=== PATIENT | female | born 1940 | race Caucasian/White ===

== ENCOUNTER 2018-12-29 08:29 | Emergency (ER) | payer MEDICARE, BC ==
[~2018-12-29] VITALS: Ht 167.6 cm; Wt 52.8 kg
[2018-12-29 09:03] VITALS: BP 131/68
--- NOTE | 2018-12-29 09:06 | NUR ---
pt straight cath, 980ml clear urine out.
[2018-12-29 09:33] LABS: CLARITY,URINE CLEAR (Clear); COLOR,URINE YELLOW (Yellow); GLUCOSE, URINE NEGATIVE (Neg); KETONES,URINE NEGATIVE (Neg); LEUKOCYTE ESTERASE ,URINE MODERATE (Neg); NITRITES, URINE NEGATIVE (Neg); OCCULT BLOOD,URINE NEGATIVE (Neg); PROTEIN,URINE NEGATIVE (Neg); UROBILINOGEN,URINE 0.2 E.U/dL (0.2-1.0)
[2018-12-29 09:33] LABS: ALANINE AMINOTRANSFERASE 18 U/L (12-78); ALBUMIN 3.7 G/DL (3.4-5.0); ALBUMIN/GLOBULIN RATIO 1.2 (1.1-1.5); ALKALINE PHOSPHATASE 116 IU/L (46-116); ANION GAP 4 (8-16); ASPARTATE AMINO TRANSFERASE 14 U/L (10-37); BILIRUBIN,TOTAL 0.2 MG/DL (0.1-1.0); BLOOD UREA NITROGEN 14 MG/DL (7-18); BUN/CREATININE RATIO 17.1 (6.6-38.0); CALCIUM 8.9 MG/DL (8.5-10.1); CHLORIDE 101 MMOL/L (99-107); CREATININE 0.82 MG/DL (0.40-0.90); GLUCOSE 102 MG/DL (70-104); SODIUM 133 MMOL/L (135-145); TOTAL PROTEIN 6.9 G/DL (6.4-8.2); eGFR 67 ML/MIN
[2018-12-29 09:34] LABS: UA COLLECTION TYPE STRAIGHT CATH
[2018-12-29 09:35] LABS: BASOPHILS # (AUTO) 0.1 X10'3 (0-0.2); BASOPHILS % (AUTO) 1.2 % (0-1); EOSINOPHILS # (AUTO) 0.6 X10'3 (0-0.9); EOSINOPHILS % (AUTO) 6.6 % (0-6); HEMATOCRIT 38.3 % (35.0-45.0); LYMPHOCYTES # (AUTO) 1.3 X10'3 (1.1-4.8); LYMPHOCYTES % (AUTO) 14.3 % (21-51); MEAN CORPUSCULAR VOLUME 96.9 FL (78-98); MEAN PLATELET VOLUME 7.3 FL (7.4-10.4); MONOCYTES # (AUTO) 0.7 X10'3 (0-0.9); MONOCYTES % (AUTO) 8.1 % (2-12); NEUTROPHILS # (AUTO) 6.3 X10'3 (1.8-7.7); NEUTROPHILS % (AUTO) 69.8 % (42-75); PLATELET COUNT 471 X10'3 (140-440); RED BLOOD COUNT 3.96 X10'6 (4.20-5.60); RED CELL DISTRIBUTION WIDTH 13.8 % (11.5-14.5)
[2018-12-29 09:50] LABS: SQUAMOUS EPITHELIAL CELL,UR FEW /LPF (FEW)
[2018-12-29 09:52] LABS: WBC,URINE 20-30 /HPF (0-4)
[2018-12-29 09:53] LABS: BACTERIA,URINE FEW /HPF (Neg); RBC,URINE 0-2 /HPF (0-2)
[2018-12-29] MEDS ORDERED: [UNRECOGNIZED DRUG - CODE] (10:04)
[2018-12-29] MEDS ORDERED: PHEN-824 PO (10:04)
== END 2018-12-29 10:28 | disposition home or self-care (01) ==
LOC: ER 08:29
DX: R33.9 Retention of urine, unspecified (principal); N39.0 Urinary tract infection, site not specified; I10 Essential (primary) hypertension; J44.9 Chronic obstructive pulmonary disease, unspecified; K21.9 Gastro-esophageal reflux disease without esophagitis; Z87.11 Personal history of peptic ulcer disease; Z87.442 Personal history of urinary calculi; Z90.710 Acquired absence of both cervix and uterus; Z88.1 Allergy status to other antibiotic agents; Z88.0 Allergy status to penicillin; Z91.012 Allergy to eggs; Z88.2 Allergy status to sulfonamides; Z79.899 Other long term (current) drug therapy
CPT/HCPCS: 36415; 51701; 80053; 81001; 85025; 99284; P9612

== ENCOUNTER 2019-03-05 08:07 | Emergency (ER) | payer MEDICARE, BC ==
[~2019-03-05] VITALS: Ht 162.6 cm; Wt 50.9 kg
[~2019-03-05 08:07] MED LIST: PHEN-824 PO; [UNRECOGNIZED DRUG - CODE]
[2019-03-05 08:16] VITALS: BP 149/61
[2019-03-05 11:23] LABS: CLARITY,URINE CLEAR (Clear); COLOR,URINE YELLOW (Yellow); GLUCOSE, URINE NEGATIVE (Neg); KETONES,URINE NEGATIVE (Neg); LEUKOCYTE ESTERASE ,URINE NEGATIVE (Neg); NITRITES, URINE NEGATIVE (Neg); OCCULT BLOOD,URINE NEGATIVE (Neg); PROTEIN,URINE NEGATIVE (Neg); UROBILINOGEN,URINE 0.2 E.U/dL (0.2-1.0)
[2019-03-05 11:24] LABS: ALANINE AMINOTRANSFERASE 22 U/L (12-78); ALBUMIN 3.9 G/DL (3.4-5.0); ALBUMIN/GLOBULIN RATIO 1.1 (1.1-1.5); ALKALINE PHOSPHATASE 119 IU/L (46-116); ANION GAP 8 (8-16); ASPARTATE AMINO TRANSFERASE 13 U/L (10-37); BILIRUBIN,TOTAL 0.3 MG/DL (0.1-1.0); BLOOD UREA NITROGEN 12 MG/DL (7-18); BUN/CREATININE RATIO 21.1 (6.6-38.0); CALCIUM 8.9 MG/DL (8.5-10.1); CHLORIDE 98 MMOL/L (99-107); CREATININE 0.57 MG/DL (0.40-0.90); GLUCOSE 105 MG/DL (70-104); POTASSIUM 3.7 MMOL/L (3.5-5.1); SODIUM 134 MMOL/L (135-145); TOTAL CARBON DIOXIDE 27.6 MMOL/L (24-32); TOTAL PROTEIN 7.3 G/DL (6.4-8.2); eGFR > 90 ML/MIN
[2019-03-05 12:14] LABS: UA COLLECTION TYPE FOLEY CATH
[2019-03-05 12:23] LABS: BASOPHILS # (AUTO) 0.1 X10'3 (0-0.2); BASOPHILS % (AUTO) 0.9 % (0-1); EOSINOPHILS # (AUTO) 0.4 X10'3 (0-0.9); EOSINOPHILS % (AUTO) 2.9 % (0-6); HEMATOCRIT 42.2 % (35.0-45.0); LYMPHOCYTES % (AUTO) 7.3 % (21-51); MEAN CORPUSCULAR HGB CONC 33.3 g/dL (33.0-36.5); MEAN CORPUSCULAR VOLUME 96.1 FL (78-98); MEAN PLATELET VOLUME 7.5 FL (7.4-10.4); MONOCYTES % (AUTO) 7.8 % (2-12); NEUTROPHILS # (AUTO) 10.6 X10'3 (1.8-7.7); NEUTROPHILS % (AUTO) 81.1 % (42-75); PLATELET COUNT 427 X10'3 (140-440); RED BLOOD COUNT 4.38 X10'6 (4.20-5.60); RED CELL DISTRIBUTION WIDTH 14.1 % (11.5-14.5); WHITE BLOOD COUNT 13.1 X10'3 (4.5-11.0)
== END 2019-03-05 11:56 | disposition home or self-care (01) ==
LOC: ER 08:08
DX: R33.9 Retention of urine, unspecified (principal); I10 Essential (primary) hypertension; J44.9 Chronic obstructive pulmonary disease, unspecified; K21.9 Gastro-esophageal reflux disease without esophagitis; Z87.442 Personal history of urinary calculi; Z90.710 Acquired absence of both cervix and uterus; Z88.6 Allergy status to analgesic agent; Z88.0 Allergy status to penicillin; Z88.2 Allergy status to sulfonamides; Z88.1 Allergy status to other antibiotic agents; Z91.013 Allergy to seafood
CPT/HCPCS: 36415; 51702; 80053; 81003; 85025; 99284

== ENCOUNTER 2019-03-07 17:41 | Emergency (ER) | payer MEDICARE, BC ==
[~2019-03-07] VITALS: Ht 162.6 cm; Wt 51.0 kg
[2019-03-07 17:43] VITALS: BP 161/55
[2019-03-07 18:55] LABS: CLARITY,URINE CLEAR (Clear); COLOR,URINE YELLOW (Yellow); GLUCOSE, URINE NEGATIVE (Neg); KETONES,URINE NEGATIVE (Neg); LEUKOCYTE ESTERASE ,URINE NEGATIVE (Neg); NITRITES, URINE NEGATIVE (Neg); OCCULT BLOOD,URINE NEGATIVE (Neg); PROTEIN,URINE TRACE mg/dl (Neg); UROBILINOGEN,URINE 0.2 E.U/dL (0.2-1.0)
[2019-03-07 19:02] LABS: UA COLLECTION TYPE FOLEY CATH
[2019-03-07 19:04] LABS: BACTERIA,URINE 1+ /HPF (Neg); MUCUS STRANDS NONE SEEN /LPF (Neg); SQUAMOUS EPITHELIAL CELL,UR MANY /LPF (FEW)
[2019-03-07] MEDS ORDERED: CEPH-572 PO (19:23)
== END 2019-03-07 19:32 | disposition home or self-care (01) ==
LOC: ER 17:42
DX: T83.098A Other mechanical complication of other urinary catheter, initial encounter (principal); T83.511A Infection and inflammatory reaction due to indwelling urethral catheter, initial encounter; I10 Essential (primary) hypertension; J44.9 Chronic obstructive pulmonary disease, unspecified; K21.9 Gastro-esophageal reflux disease without esophagitis; Z90.710 Acquired absence of both cervix and uterus; Z87.442 Personal history of urinary calculi; Z98.890 Other specified postprocedural states; Z88.0 Allergy status to penicillin; Z91.013 Allergy to seafood; Z88.2 Allergy status to sulfonamides; Z79.2 Long term (current) use of antibiotics; Z79.899 Other long term (current) drug therapy
CPT/HCPCS: 51702; 81001; 99284

== ENCOUNTER 2019-03-12 20:46 | Inpatient (IN) | payer MEDICARE, BC ==
[~2019-03-12] VITALS: Ht 162.6 cm; Wt 110.0 kg
[~2019-03-12 20:46] MED LIST changes: +CEPH-572 PO
[2019-03-12] MEDS ORDERED: LIDOcaine 1% 30ml preserv. free vial IJ ONE (21:05)
--- NOTE | 2019-03-12 21:48 | NUR ---
DR VELEZ AT BEDSIDE ,HELP THE PT TO REMOVE PANTS.CELESTINO GARCIA AT BEDSIDE WITH DR VELEZ.
[2019-03-12 21:52] LABS: BASOPHILS # (AUTO) 0.1 X10'3 (0-0.2); BASOPHILS % (AUTO) 0.9 % (0-1); EOSINOPHILS # (AUTO) 0.4 X10'3 (0-0.9); EOSINOPHILS % (AUTO) 3.4 % (0-6); HEMATOCRIT 30.9 % (35.0-45.0); HEMOGLOBIN 10.6 g/dl (12.0-16.0); LYMPHOCYTES # (AUTO) 2.1 X10'3 (1.1-4.8); LYMPHOCYTES % (AUTO) 16.7 % (21-51); MEAN CORPUSCULAR HEMOGLOBIN 32.9 PG (27.0-31.0); MEAN CORPUSCULAR HGB CONC 34.2 g/dL (33.0-36.5); MEAN CORPUSCULAR VOLUME 96.2 FL (78-98); MEAN PLATELET VOLUME 6.9 FL (7.4-10.4); MONOCYTES # (AUTO) 1.1 X10'3 (0-0.9); MONOCYTES % (AUTO) 8.9 % (2-12); NEUTROPHILS # (AUTO) 8.8 X10'3 (1.8-7.7); NEUTROPHILS % (AUTO) 70.1 % (42-75); PLATELET COUNT 482 X10'3 (140-440); RED BLOOD COUNT 3.21 X10'6 (4.20-5.60); RED CELL DISTRIBUTION WIDTH 13.9 % (11.5-14.5); WHITE BLOOD COUNT 12.5 X10'3 (4.5-11.0)
[2019-03-12 22:03] LABS: ALANINE AMINOTRANSFERASE 24 U/L (12-78); ALBUMIN 3.1 G/DL (3.4-5.0); ALBUMIN/GLOBULIN RATIO 1.2 (1.1-1.5); ALKALINE PHOSPHATASE 86 IU/L (46-116); ANION GAP 5 (8-16); ASPARTATE AMINO TRANSFERASE 11 U/L (10-37); BILIRUBIN,TOTAL 0.3 MG/DL (0.1-1.0); BLOOD UREA NITROGEN 23 MG/DL (7-18); BUN/CREATININE RATIO 32.9 (6.6-38.0); CALCIUM 8.1 MG/DL (8.5-10.1); CHLORIDE 106 MMOL/L (99-107); GLUCOSE 104 MG/DL (70-104); POTASSIUM 4.2 MMOL/L (3.5-5.1); SODIUM 140 MMOL/L (135-145); TOTAL CARBON DIOXIDE 28.7 MMOL/L (24-32); TOTAL PROTEIN 5.7 G/DL (6.4-8.2); eGFR 81 ML/MIN
[2019-03-12 22:09] LABS: PARTIAL THROMBOPLASTIN TIME 21 SECONDS (22-32)
--- NOTE | 2019-03-12 22:50 | NUR ---
pt to ct scan via hugo with adjunct professor of voice
[2019-03-12 22:56] LABS: UA COLLECTION TYPE OTHER
[2019-03-12 22:57] LABS: CLARITY,URINE CLEAR (Clear); COLOR,URINE YELLOW (Yellow); GLUCOSE, URINE NEGATIVE (Neg); KETONES,URINE NEGATIVE (Neg); LEUKOCYTE ESTERASE ,URINE NEGATIVE (Neg); NITRITES, URINE NEGATIVE (Neg); OCCULT BLOOD,URINE TRACE-INTACT (Neg); PROTEIN,URINE 30 mg/dl (Neg); UROBILINOGEN,URINE 0.2 E.U/dL (0.2-1.0)
[2019-03-12 23:06] LABS: BACTERIA,URINE NONE SEEN /HPF (Neg); MUCUS STRANDS NONE SEEN /LPF (Neg); RBC,URINE 0-2 /HPF (0-2); SQUAMOUS EPITHELIAL CELL,UR FEW /LPF (FEW); WBC,URINE NONE SEEN /HPF (0-4)
[2019-03-13] MEDS ORDERED: morphine 4 MG/ML inj SYRINge IV ONE (01:30)
[2019-03-13] MEDS ORDERED: ondansetron/PF 4mg/2ml inj IV ONE (01:30)
[2019-03-13] MEDS ORDERED: PHEN100C12 PO (03:03)
[2019-03-13] MEDS ORDERED: PHEN-403 PO (03:03)
[2019-03-13] MEDS ORDERED: PRAM0.253 PO (03:08)
[2019-03-13] MEDS ORDERED: DILT180C90 PO (03:08)
[2019-03-13] MEDS ORDERED: PHEN-887 PO (03:08)
[2019-03-13] MEDS ORDERED: ASPI-1265 PO (03:26)
[2019-03-13] MEDS ORDERED: LOSA25TA96 PO (03:28)
[2019-03-13 03:34] LABS: PHENYTOIN (DILANTIN) 2.4 UG/ML (10.0-20.0)
[2019-03-13] MEDS ORDERED: magnesium hydroxide 30ml (MOM) UD suspension PO PRN (03:35)
[2019-03-13] MEDS ORDERED: HYDROcodone/acetaminophen 5mg/325mg tablet PO PRN (03:35)
[2019-03-13] MEDS ORDERED: morphine 2 MG/ML inj. syringe IV PRN (03:35)
[2019-03-13] MEDS ORDERED: mag hydrox/Alum hydrox/simeth 30ml oral suspension PO PRN (03:35)
[2019-03-13] MEDS ORDERED: acetaminophen 325mg tablet PO PRN (03:35)
--- NOTE | 2019-03-13 04:10 | NUR ---
Received report from CONNECTION WORKER. Patient currently in the hallway and in process of being transferred from the [facility] to our bed.
[2019-03-13 04:21] VITALS: BP 128/60
[2019-03-13] MEDS: morphine 2 MG/ML inj. syringe IV PRN ×3 (04:31→13:40)
--- NOTE | 2019-03-13 06:15 | NUR ---
Patient in room ORTHO 4023. I have received report from JACQUELINE CAMPBELL and had the opportunity to ask questions and assume patient care.
[2019-03-13] MEDS: HYDROcodone/acetaminophen 10/325mg tab PO PRN ×3 (06:52→20:47)
[2019-03-13 07:08] VITALS: BP 128/60
[2019-03-13] MEDS: phenazopyridine 100mg tablet PO SCH ×2 (08:48→15:43)
[2019-03-13] MEDS: phenytoin sod ER 100mg capsule PO SCH (08:48)
[2019-03-13] MEDS: aspirin 81mg tab.chew PO SCH (08:48)
[2019-03-13] MEDS: diltiazem CD 180mg cap (once-daily) PO SCH (08:48)
[2019-03-13] MEDS: losartan 25mg tablet PO SCH (08:48)
[2019-03-13] MEDS: ondansetron/PF 4mg/2ml inj IV PRN ×2 (09:57→15:43)
[2019-03-13 10:57] VITALS: BP 121/55
--- NOTE | 2019-03-13 11:52 | NUR ---
Pt seen by OLGA admit w/ hematoma s/p fall. Pt reports current GI discomfort; agrees to ensure pudding TIDWM and would like salt TIDWM on regular diet. Dietary notified. Addendum: 03/13/19 at [address] Amended: Links added.
[2019-03-13] MEDS: pantoprazole 40mg Tablet.DR PO SCH ×2 (13:30→15:49)
[2019-03-13 18:00] VITALS: BP 105/52
--- NOTE | 2019-03-13 18:19 | NUR ---
Problems reprioritized. Patient report given, questions answered & plan of care reviewed with JACQUELINE CAMPBELL.
[2019-03-13] MEDS: pramipexole 0.25mg tablet PO SCH (20:44)
[2019-03-13 22:00] VITALS: BP 111/53
[2019-03-14 06:00] VITALS: BP 105/44
--- NOTE | 2019-03-14 06:29 | NUR ---
Problems reprioritized. Patient report given, questions answered & plan of care reviewed with JACQUELINE Jaimes.
[2019-03-14 06:41] LABS: BASOPHILS # (AUTO) 0.1 X10'3 (0-0.2); BASOPHILS % (AUTO) 0.5 % (0-1); EOSINOPHILS # (AUTO) 0.4 X10'3 (0-0.9); HEMATOCRIT 22.4 % (35.0-45.0); HEMOGLOBIN 7.5 g/dl (12.0-16.0); LYMPHOCYTES # (AUTO) 0.9 X10'3 (1.1-4.8); LYMPHOCYTES % (AUTO) 7.4 % (21-51); MEAN CORPUSCULAR HEMOGLOBIN 32.7 PG (27.0-31.0); MEAN CORPUSCULAR HGB CONC 33.5 g/dL (33.0-36.5); MEAN CORPUSCULAR VOLUME 97.7 FL (78-98); MEAN PLATELET VOLUME 7.3 FL (7.4-10.4); MONOCYTES % (AUTO) 8.1 % (2-12); NEUTROPHILS # (AUTO) 9.7 X10'3 (1.8-7.7); PLATELET COUNT 370 X10'3 (140-440); RED CELL DISTRIBUTION WIDTH 13.7 % (11.5-14.5); WHITE BLOOD COUNT 11.9 X10'3 (4.5-11.0)
--- NOTE | 2019-03-14 06:55 | NUR ---
Patient in room ORTHO 4023. I have received report from Jocelyne Casey RN and had the opportunity to ask questions and assume patient care.
[2019-03-14 07:00] LABS: ALANINE AMINOTRANSFERASE 18 U/L (12-78); ALBUMIN 2.5 G/DL (3.4-5.0); ALKALINE PHOSPHATASE 77 IU/L (46-116); ANION GAP 4 (8-16); ASPARTATE AMINO TRANSFERASE 13 U/L (10-37); BILIRUBIN,TOTAL 0.2 MG/DL (0.1-1.0); BLOOD UREA NITROGEN 18 MG/DL (7-18); BUN/CREATININE RATIO 30.5 (6.6-38.0); CALCIUM 7.7 MG/DL (8.5-10.1); CHLORIDE 102 MMOL/L (99-107); CREATININE 0.59 MG/DL (0.40-0.90); GLUCOSE 138 MG/DL (70-104); POTASSIUM 4.8 MMOL/L (3.5-5.1); SODIUM 134 MMOL/L (135-145); TOTAL CARBON DIOXIDE 28.5 MMOL/L (24-32); TOTAL PROTEIN 4.9 G/DL (6.4-8.2); eGFR > 90 ML/MIN
[2019-03-14] MEDS: phenazopyridine 100mg tablet PO SCH ×4 (07:50→23:35)
[2019-03-14] MEDS: pantoprazole 40mg Tablet.DR PO SCH (07:50)
[2019-03-14] MEDS: phenytoin sod ER 100mg capsule PO SCH (07:51)
[2019-03-14] MEDS: diltiazem CD 180mg cap (once-daily) PO SCH (07:53)
[2019-03-14 07:54] VITALS: BP 98/47
[2019-03-14] MEDS: losartan 25mg tablet PO SCH (07:54)
[2019-03-14] MEDS: HYDROcodone/acetaminophen 10/325mg tab PO PRN ×2 (07:59→16:08)
[2019-03-14] MEDS: aspirin 81mg tab.chew PO SCH (08:00)
[2019-03-14 08:13] VITALS: BP 110/45
[2019-03-14] MEDS: ondansetron/PF 4mg/2ml inj IV PRN (08:42)
[2019-03-14 09:42] VITALS: BP 111/45
[2019-03-14] MEDS: sucralfate 1gm/10ml UD suspension PO SCH ×2 (16:08→20:10)
[2019-03-14 18:00] VITALS: BP 106/51
--- NOTE | 2019-03-14 18:11 | NUR ---
Problems reprioritized. Patient report given, questions answered & plan of care reviewed with Jocelyne Casey RN.
[2019-03-14] MEDS: pramipexole 0.25mg tablet PO SCH (20:07)
[2019-03-14 22:00] VITALS: BP 117/52
[2019-03-15] VITALS (8 sets, daily range): BP systolic 100–123; BP diastolic 42–60
[2019-03-15] MEDS: HYDROcodone/acetaminophen 10/325mg tab PO PRN ×2 (05:52→20:42)
[2019-03-15 05:58] LABS: BASOPHILS # (AUTO) 0.1 X10'3 (0-0.2); BASOPHILS % (AUTO) 0.5 % (0-1); EOSINOPHILS # (AUTO) 0.3 X10'3 (0-0.9); EOSINOPHILS % (AUTO) 3.3 % (0-6); HEMOGLOBIN 7.1 g/dl (12.0-16.0); LYMPHOCYTES % (AUTO) 9.8 % (21-51); MEAN CORPUSCULAR HEMOGLOBIN 33.2 PG (27.0-31.0); MEAN CORPUSCULAR HGB CONC 34.4 g/dL (33.0-36.5); MEAN CORPUSCULAR VOLUME 96.7 FL (78-98); MEAN PLATELET VOLUME 6.9 FL (7.4-10.4); MONOCYTES # (AUTO) 1.1 X10'3 (0-0.9); MONOCYTES % (AUTO) 10.6 % (2-12); NEUTROPHILS % (AUTO) 75.8 % (42-75); PLATELET COUNT 353 X10'3 (140-440); RED BLOOD COUNT 2.15 X10'6 (4.20-5.60); RED CELL DISTRIBUTION WIDTH 13.6 % (11.5-14.5); WHITE BLOOD COUNT 10.5 X10'3 (4.5-11.0)
[2019-03-15 06:07] LABS: HEMATOCRIT 20.8 % (35.0-45.0)
--- NOTE | 2019-03-15 06:37 | NUR ---
Problems reprioritized. Patient report given, questions answered & plan of care reviewed with JACQUELINE Dugan. Critical results given to Kailee - she will notify .
[2019-03-15 06:53] LABS: ALANINE AMINOTRANSFERASE 16 U/L (12-78); ALBUMIN 2.4 G/DL (3.4-5.0); ALBUMIN/GLOBULIN RATIO 0.9 (1.1-1.5); ALKALINE PHOSPHATASE 70 IU/L (46-116); ANION GAP 3 (8-16); ASPARTATE AMINO TRANSFERASE 16 U/L (10-37); BILIRUBIN,TOTAL 0.3 MG/DL (0.1-1.0); BLOOD UREA NITROGEN 13 MG/DL (7-18); BUN/CREATININE RATIO 22.4 (6.6-38.0); CALCIUM 7.7 MG/DL (8.5-10.1); CHLORIDE 101 MMOL/L (99-107); CREATININE 0.58 MG/DL (0.40-0.90); GLUCOSE 113 MG/DL (70-104); POTASSIUM 4.8 MMOL/L (3.5-5.1); SODIUM 133 MMOL/L (135-145); TOTAL PROTEIN 5.1 G/DL (6.4-8.2); eGFR > 90 ML/MIN
--- NOTE | 2019-03-15 07:06 | NUR ---
PAGER ID: [phone] MESSAGE: Kailee Mo[address] in [id number]- received critical h/h- .
[2019-03-15] MEDS: losartan 25mg tablet PO SCH (08:00)
[2019-03-15] MEDS: diltiazem CD 180mg cap (once-daily) PO SCH (09:52)
[2019-03-15] MEDS: pantoprazole 40mg Tablet.DR PO SCH (09:53)
[2019-03-15] MEDS: sucralfate 1gm/10ml UD suspension PO SCH ×4 (09:53→20:42)
[2019-03-15] MEDS: phenazopyridine 100mg tablet PO SCH ×2 (09:53→16:00)
[2019-03-15] MEDS: phenytoin sod ER 100mg capsule PO SCH (09:53)
[2019-03-15] MEDS: aspirin 81mg tab.chew PO SCH (12:06)
[2019-03-15] MEDS: pramipexole 0.25mg tablet PO SCH (20:41)
[2019-03-16] MEDS: HYDROcodone/acetaminophen 10/325mg tab PO PRN ×2 (05:39→13:02)
[2019-03-16 06:00] VITALS: BP 104/45
--- NOTE | 2019-03-16 06:24 | NUR ---
Problems reprioritized. Patient report given, questions answered & plan of care reviewed with JACQUELINE Dugan.
[2019-03-16 07:09] LABS: BASOPHILS # (AUTO) 0.1 X10'3 (0-0.2); BASOPHILS % (AUTO) 0.6 % (0-1); EOSINOPHILS # (AUTO) 0.5 X10'3 (0-0.9); EOSINOPHILS % (AUTO) 4.5 % (0-6); HEMATOCRIT 26.9 % (35.0-45.0); HEMOGLOBIN 9.2 g/dl (12.0-16.0); LYMPHOCYTES # (AUTO) 1.3 X10'3 (1.1-4.8); LYMPHOCYTES % (AUTO) 12.3 % (21-51); MEAN CORPUSCULAR HEMOGLOBIN 32.1 PG (27.0-31.0); MEAN CORPUSCULAR HGB CONC 34.2 g/dL (33.0-36.5); MEAN CORPUSCULAR VOLUME 93.7 FL (78-98); MEAN PLATELET VOLUME 7.3 FL (7.4-10.4); MONOCYTES # (AUTO) 1.4 X10'3 (0-0.9); MONOCYTES % (AUTO) 13.7 % (2-12); NEUTROPHILS # (AUTO) 7.1 X10'3 (1.8-7.7); NEUTROPHILS % (AUTO) 68.9 % (42-75); PLATELET COUNT 372 X10'3 (140-440); RED BLOOD COUNT 2.87 X10'6 (4.20-5.60); RED CELL DISTRIBUTION WIDTH 16.4 % (11.5-14.5); WHITE BLOOD COUNT 10.3 X10'3 (4.5-11.0)
[2019-03-16 07:28] LABS: ALANINE AMINOTRANSFERASE 15 U/L (12-78); ALBUMIN 2.4 G/DL (3.4-5.0); ALBUMIN/GLOBULIN RATIO 0.8 (1.1-1.5); ALKALINE PHOSPHATASE 71 IU/L (46-116); ANION GAP 0 (8-16); ASPARTATE AMINO TRANSFERASE 9 U/L (10-37); BILIRUBIN,TOTAL 0.4 MG/DL (0.1-1.0); BLOOD UREA NITROGEN 8 MG/DL (7-18); CALCIUM 7.8 MG/DL (8.5-10.1); CHLORIDE 101 MMOL/L (99-107); CREATININE 0.57 MG/DL (0.40-0.90); GLUCOSE 103 MG/DL (70-104); POTASSIUM 4.5 MMOL/L (3.5-5.1); SODIUM 133 MMOL/L (135-145); TOTAL CARBON DIOXIDE 31.7 MMOL/L (24-32); TOTAL PROTEIN 5.5 G/DL (6.4-8.2); eGFR > 90 ML/MIN
[2019-03-16] MEDS: losartan 25mg tablet PO SCH (08:00)
[2019-03-16] MEDS: diltiazem CD 180mg cap (once-daily) PO SCH (09:30)
[2019-03-16] MEDS: aspirin 81mg tab.chew PO SCH (09:30)
[2019-03-16] MEDS: sucralfate 1gm/10ml UD suspension PO SCH ×5 (09:30→20:08)
[2019-03-16] MEDS: phenytoin sod ER 100mg capsule PO SCH (09:31)
[2019-03-16] MEDS: pantoprazole 40mg Tablet.DR PO SCH (09:31)
[2019-03-16 10:00] VITALS: BP 118/52
--- NOTE | 2019-03-16 10:03 | NUR ---
PAGER ID: [phone] MESSAGE: Kailee ortho [phone] Akosua Moreno- can we get RT albuterol tx at least PRN? Uses it at home. On 3L o2 and desats <80 on RA while ambulating. Also I'd like to add docusate BID PRN constipation? Thank you! Addendum: 03/16/19 at 1026 by Angelica Marinelli RN added orders for rt, stool softener and a chest xray
[2019-03-16] MEDS ORDERED: PANT40TA4 PO (11:39)
[2019-03-16] MEDS ORDERED: SUCR1ORA PO (11:39)
[2019-03-16] MEDS: docusate sod 100mg capsule PO SCH ×2 (13:00→20:08)
--- NOTE | 2019-03-16 13:23 | NUR ---
PAGER ID: [phone] MESSAGE: Kailee [address] in [id number]- we need the dc paper signed, we can come to you if you would like
--- NOTE | 2019-03-16 16:26 | NUR ---
PAGER ID: [phone] MESSAGE: Kailee Ortiz26 [address] [place] in [id number]- Alvin is refusing to admit her because no BM X4 days. Pt refusing bowel care. case irene says she can go tomorrow if she has bm tonight. Can I order a suppository for her?
[2019-03-16] MEDS ORDERED: bisacodyl 10mg suppository rectal RC PRN (16:30)
[2019-03-16 18:00] VITALS: BP 124/45
--- NOTE | 2019-03-16 18:25 | NUR ---
Received report from Kailee PHILLIPS. Assumed care of patient.
[2019-03-16] MEDS ORDERED: docusate sod 100mg capsule PO SCH (20:00)
[2019-03-16] MEDS: pramipexole 0.25mg tablet PO SCH (20:08)
[2019-03-16] MEDS: albuterol 2.5 MG/3 ML nebule NEB PRN (20:52)
[2019-03-16 22:00] VITALS: BP 123/48
--- NOTE | 2019-03-17 | NUR ---
Gave patient some prune juice to encourage a bowel movement.
--- NOTE | 2019-03-17 06:25 | NUR ---
Gave report to Karol PHILLIPS
[2019-03-17 06:33] LABS: BASOPHILS # (AUTO) 0.1 X10'3 (0-0.2); BASOPHILS % (AUTO) 0.8 % (0-1); EOSINOPHILS # (AUTO) 0.4 X10'3 (0-0.9); EOSINOPHILS % (AUTO) 3.8 % (0-6); HEMATOCRIT 25.7 % (35.0-45.0); HEMOGLOBIN 8.7 g/dl (12.0-16.0); LYMPHOCYTES % (AUTO) 9.7 % (21-51); MEAN CORPUSCULAR HEMOGLOBIN 32.1 PG (27.0-31.0); MEAN CORPUSCULAR HGB CONC 33.9 g/dL (33.0-36.5); MEAN CORPUSCULAR VOLUME 94.9 FL (78-98); MEAN PLATELET VOLUME 7.1 FL (7.4-10.4); MONOCYTES # (AUTO) 1.3 X10'3 (0-0.9); MONOCYTES % (AUTO) 12.5 % (2-12); NEUTROPHILS # (AUTO) 7.8 X10'3 (1.8-7.7); NEUTROPHILS % (AUTO) 73.2 % (42-75); PLATELET COUNT 440 X10'3 (140-440); RED BLOOD COUNT 2.71 X10'6 (4.20-5.60); WHITE BLOOD COUNT 10.7 X10'3 (4.5-11.0)
[2019-03-17 06:50] LABS: ALANINE AMINOTRANSFERASE 18 U/L (12-78); ALBUMIN 2.4 G/DL (3.4-5.0); ALBUMIN/GLOBULIN RATIO 0.8 (1.1-1.5); ALKALINE PHOSPHATASE 72 IU/L (46-116); ANION GAP 4 (8-16); ASPARTATE AMINO TRANSFERASE 17 U/L (10-37); BILIRUBIN,TOTAL 0.5 MG/DL (0.1-1.0); BLOOD UREA NITROGEN 8 MG/DL (7-18); BUN/CREATININE RATIO 15.4 (6.6-38.0); CALCIUM 7.8 MG/DL (8.5-10.1); CHLORIDE 99 MMOL/L (99-107); CREATININE 0.52 MG/DL (0.40-0.90); GLUCOSE 101 MG/DL (70-104); POTASSIUM 4.6 MMOL/L (3.5-5.1); SODIUM 132 MMOL/L (135-145); TOTAL CARBON DIOXIDE 28.7 MMOL/L (24-32); TOTAL PROTEIN 5.5 G/DL (6.4-8.2); eGFR > 90 ML/MIN
[2019-03-17] MEDS: pantoprazole 40mg Tablet.DR PO SCH (07:41)
[2019-03-17] MEDS: sucralfate 1gm/10ml UD suspension PO SCH ×2 (07:41→11:34)
[2019-03-17] MEDS: docusate sod 100mg capsule PO SCH (08:00)
[2019-03-17] MEDS: albuterol 2.5 MG/3 ML nebule NEB PRN ×2 (08:35→16:19)
[2019-03-17] MEDS: aspirin 81mg tab.chew PO SCH (08:50)
[2019-03-17] MEDS: losartan 25mg tablet PO SCH (08:56)
[2019-03-17] MEDS: diltiazem CD 180mg cap (once-daily) PO SCH (08:56)
[2019-03-17] MEDS: phenytoin sod ER 100mg capsule PO SCH (08:57)
--- NOTE | 2019-03-17 16:15 | NUR ---
Received orders for pt to transfer to [facility] for short term rehab. Saline Lock dc'd from RFA with cannula intact. No redness/swelling at insertion site. Pt transferred from bed to [facility] for transport to [facility] by [facility] [employer]. Report called to JACQUELINE Vinson at [facility].
== END 2019-03-17 16:30 | DRG 605 ==
LOC: ER 20:47 → ORTHO 4S 03-13 03:45 → CMPBEDREQ 03-13 03:57
PROVIDERS: ADMIT Internal Medicine; ATTEND Internal Medicine
PROC: 3E0T3BZ Introduction of Anesthetic Agent into Peripheral Nerves and Plexi, Percutaneous Approach (ICD-10-PCS; principal; 2019-03-12)
PROC: 30233N1 Transfusion of Nonautologous Red Blood Cells into Peripheral Vein, Percutaneous Approach (ICD-10-PCS; 2019-03-15)
DX: S70.02XA Contusion of left hip, initial encounter (principal); Z68.41 Body mass index [BMI] 40.0-44.9, adult; D62 Acute posthemorrhagic anemia; G40.209 Localization-related (focal) (partial) symptomatic epilepsy and epileptic syndromes with complex partial seizures, not intractable, without status epilepticus; J96.10 Chronic respiratory failure, unspecified whether with hypoxia or hypercapnia; S50.02XA Contusion of left elbow, initial encounter; M81.0 Age-related osteoporosis without current pathological fracture; G47.30 Sleep apnea, unspecified; I10 Essential (primary) hypertension; W18.39XA Other fall on same level, initial encounter; J44.9 Chronic obstructive pulmonary disease, unspecified; K21.9 Gastro-esophageal reflux disease without esophagitis; Z87.11 Personal history of peptic ulcer disease; Z87.442 Personal history of urinary calculi; Z87.891 Personal history of nicotine dependence; Z90.710 Acquired absence of both cervix and uterus; Z99.81 Dependence on supplemental oxygen; Z87.440 Personal history of urinary (tract) infections; Y93.89 Activity, other specified; Y92.89 Other specified places as the place of occurrence of the external cause; Y99.8 Other external cause status; Z88.2 Allergy status to sulfonamides; Z88.8 Allergy status to other drugs, medicaments and biological substances; Z88.1 Allergy status to other antibiotic agents; Z91.041 Radiographic dye allergy status; Z88.0 Allergy status to penicillin; Z91.013 Allergy to seafood
CPT/HCPCS: 36415; 64450; 71045; 72192; 73080; 73502; 80053; 80185; 81001; 85025; 85610; 85730; 86885; 86900; 86901; 86920; 87081; 93005; 94640; 94760; 96374; 96375; 97110; 97116; 97162; 97530; 99285; G0378; J2001; J2270; J2405; P9016

== ENCOUNTER 2019-05-13 09:28 | Emergency (ER) | payer MEDICARE, BC ==
[~2019-05-13] VITALS: Ht 162.6 cm; Wt 47.0 kg
[~2019-05-13 09:28] MED LIST changes: +ASPI-1265 PO; -CEPH-572 PO; +DILT180C90 PO; +LOSA25TA96 PO; +PANT40TA4 PO; -PHEN-824 PO; +PHEN100C12 PO; +PRAM0.253 PO; +SUCR1ORA PO; -[UNRECOGNIZED DRUG - CODE]
--- NOTE | 2019-05-13 11:41 | NUR ---
pt rtesting in bed ,vitals updated spo2 92 on ra.pt has hx of copd use o2 as needed.daughter at bedside.
--- NOTE | 2019-05-13 11:59 | NUR ---
CALLED [facility], WHO CONFIRMED THEY RECEIVED PT'S URINE AND WERE RUNNING IT
[2019-05-13 12:06] LABS: CLARITY,URINE CLOUDY (Clear); COLOR,URINE YELLOW (Yellow); GLUCOSE, URINE 100 mg/dl (Neg); KETONES,URINE NEGATIVE (Neg); LEUKOCYTE ESTERASE ,URINE MODERATE (Neg); NITRITES, URINE NEGATIVE (Neg); OCCULT BLOOD,URINE NEGATIVE (Neg); PH,URINE 7.5 (4.8-8.0); PROTEIN,URINE NEGATIVE (Neg); UROBILINOGEN,URINE 0.2 E.U/dL (0.2-1.0)
[2019-05-13 12:09] LABS: UA COLLECTION TYPE FOLEY CATH
[2019-05-13 12:37] LABS: BACTERIA,URINE 4+ /HPF (Neg); MUCUS STRANDS NONE SEEN /LPF (Neg); RBC,URINE 0-2 /HPF (0-2); SQUAMOUS EPITHELIAL CELL,UR FEW /LPF (FEW); WBC,URINE 50-100 /HPF (0-4)
[2019-05-13] MEDS ORDERED: DOXY100C2 PO (12:42)
[2019-05-13 12:56] VITALS: BP 131/61
== END 2019-05-13 12:58 | disposition home or self-care (01) ==
LOC: ER 09:29
DX: R33.9 Retention of urine, unspecified (principal); N39.0 Urinary tract infection, site not specified; I10 Essential (primary) hypertension; J44.9 Chronic obstructive pulmonary disease, unspecified; Z87.11 Personal history of peptic ulcer disease; Z87.442 Personal history of urinary calculi; Z90.710 Acquired absence of both cervix and uterus; Z98.890 Other specified postprocedural states; Z88.0 Allergy status to penicillin; Z91.013 Allergy to seafood; Z88.2 Allergy status to sulfonamides; Z79.82 Long term (current) use of aspirin; Z79.899 Other long term (current) drug therapy
CPT/HCPCS: 51702; 81001; 99284

== ENCOUNTER 2021-12-19 10:15 | Emergency (ER) | payer BC, MEDICARE ==
[~2021-12-19] VITALS: Ht 160 cm; Wt 51.8 kg
[~2021-12-19 10:15] MED LIST changes: -PANT40TA4 PO; +PANT40TA54 PO; -SUCR1ORA PO; +SUCR1ORA15 PO
[2021-12-19] MEDS ORDERED: HYDROcodone/acetaminophen 5mg/325mg tablet PO ONE (11:15)
[2021-12-19] MEDS ORDERED: ketorolac trometh inj. 60 MG/2 ML VIAL IM ONE (11:15)
[2021-12-19] MEDS ORDERED: acetaminophen 325mg tablet PO ONE (11:15)
[2021-12-19] MEDS ORDERED: orphenadrine citrate 60mg/2ml inj. IM ONE (11:15)
[2021-12-19] MEDS ORDERED: LIDOcaine 5% patch TP ONE (11:15)
--- NOTE | 2021-12-19 12:26 | NUR ---
Patient stated that she is unable to lay flat for MRI and has to be sedated for scan. Notified Dr. Gil regarding this and he stated that he would order a CT scan instead. Kristen DENIS aware of new order.
[2021-12-19] MEDS ORDERED: IBUP-1984 PO (13:54)
[2021-12-19] MEDS ORDERED: ACET-1025 PO (13:54)
[2021-12-19] MEDS ORDERED: HYDR-3965 PO (13:54)
[2021-12-19] MEDS ORDERED: LIDO700A32 TOP (13:54)
[2021-12-19 15:55] VITALS: BP 165/72
== END 2021-12-19 16:10 | disposition home or self-care (01) ==
LOC: ER 10:15
DX: M54.2 Cervicalgia (principal); R20.0 Anesthesia of skin; M79.89 Other specified soft tissue disorders; I10 Essential (primary) hypertension; J44.9 Chronic obstructive pulmonary disease, unspecified; Z86.69 Personal history of other diseases of the nervous system and sense organs; Z87.11 Personal history of peptic ulcer disease; Z87.442 Personal history of urinary calculi; Z87.440 Personal history of urinary (tract) infections; G89.29 Other chronic pain; Z90.710 Acquired absence of both cervix and uterus; Z72.89 Other problems related to lifestyle; Z98.890 Other specified postprocedural states; Z88.0 Allergy status to penicillin; Z88.2 Allergy status to sulfonamides; Z88.1 Allergy status to other antibiotic agents; Z88.8 Allergy status to other drugs, medicaments and biological substances; Z91.013 Allergy to seafood; Z79.82 Long term (current) use of aspirin; Z79.899 Other long term (current) drug therapy
CPT/HCPCS: 72125; 93971; 96372; 99284; J1885; J2360

== ENCOUNTER 2022-04-22 10:53 | Emergency (ER) | payer BC ==
[~2022-04-22] VITALS: Ht 160 cm; Wt 55.0 kg
[~2022-04-22 10:53] MED LIST changes: +LIDO700A32 TOP
[2022-04-22 11:04] VITALS: BP 160/75
[2022-04-22] MEDS ORDERED: HYDROcodone/acetaminophen 10/325mg tab PO ONE (12:05)
[2022-04-22] MEDS ORDERED: HYDR-3972 PO (12:22)
[2022-04-22] MEDS ORDERED: HYDR-3965 PO (12:24)
== END 2022-04-22 12:58 | disposition home or self-care (01) ==
LOC: ER 10:53
DX: M25.511 Pain in right shoulder (principal); I10 Essential (primary) hypertension; J44.9 Chronic obstructive pulmonary disease, unspecified; K21.9 Gastro-esophageal reflux disease without esophagitis; G89.29 Other chronic pain; Z88.5 Allergy status to narcotic agent; Z88.0 Allergy status to penicillin; Z88.2 Allergy status to sulfonamides; Z90.710 Acquired absence of both cervix and uterus
CPT/HCPCS: 73030; 99284; A4615

== ENCOUNTER 2022-10-04 08:08 | Inpatient (IN) | payer BC ==
[~2022-10-04] VITALS: Ht 157.5 cm; Wt 59.1 kg
[2022-10-04] MEDS ORDERED: methylPREDNISolone sod succ 125mg/2ml vial IV ONE (08:15)
[2022-10-04] MEDS ORDERED: ipratropium/albuterol 3ml nebule NEB ONE (08:15)
[2022-10-04] MEDS ORDERED: albuterol 2.5 MG/3 ML nebule NEB ONE (08:15)
[2022-10-04 08:41] LABS: BASOPHILS # (AUTO) 0.1 X10'3 (0-0.2); BASOPHILS % (AUTO) 0.5 % (0-1); EOSINOPHILS # (AUTO) 0.1 X10'3 (0-0.9); EOSINOPHILS % (AUTO) 1.1 % (0-6); HEMATOCRIT 37.2 % (35.0-45.0); HEMOGLOBIN 11.9 g/dl (12.0-16.0); LYMPHOCYTES # (AUTO) 0.8 X10'3 (1.1-4.8); LYMPHOCYTES % (AUTO) 7.1 % (21-51); MEAN CORPUSCULAR HEMOGLOBIN 30.7 PG (27.0-31.0); MEAN CORPUSCULAR HGB CONC 31.9 g/dL (33.0-36.5); MEAN PLATELET VOLUME 7.2 FL (7.4-10.4); MONOCYTES # (AUTO) 1.1 X10'3 (0-0.9); NEUTROPHILS # (AUTO) 9.1 X10'3 (1.8-7.7); NEUTROPHILS % (AUTO) 81.3 % (42-75); PLATELET COUNT 471 X10'3 (140-440); RED BLOOD COUNT 3.87 X10'6 (4.20-5.60); RED CELL DISTRIBUTION WIDTH 14.6 % (11.5-14.5); WHITE BLOOD COUNT 11.1 X10'3 (4.5-11.0)
[2022-10-04 10:21] LABS: ALANINE AMINOTRANSFERASE 35 U/L (12-78); ALBUMIN 3.4 G/DL (3.4-5.0); ALBUMIN/GLOBULIN RATIO 0.9 (1.1-1.5); ALKALINE PHOSPHATASE 113 IU/L (46-116); ANION GAP 7 (8-16); ASPARTATE AMINO TRANSFERASE 41 U/L (10-37); BILIRUBIN,TOTAL 0.6 MG/DL (0.1-1.0); BLOOD UREA NITROGEN 17 MG/DL (7-18); BUN/CREATININE RATIO 28.3 (6.6-38.0); CALCIUM 8.5 MG/DL (8.5-10.1); CHLORIDE 98 MMOL/L (99-107); GLUCOSE 102 MG/DL (70-104); SODIUM 130 MMOL/L (135-145); TOTAL CARBON DIOXIDE 24.6 MMOL/L (24-32); eGFR > 90 ML/MIN
[2022-10-04 10:31] LABS: POTASSIUM 4.9 MMOL/L (3.5-5.1)
[2022-10-04] MEDS ORDERED: LORazepam 2 mg/ml vial IV ONE (11:20)
[2022-10-04] MEDS ORDERED: DOXYCYCLINE 100MG CAPSULE PO STA (11:27)
[2022-10-04] MEDS ORDERED: ondansetron/PF 4mg/2ml inj IV PRN (11:30)
[2022-10-04] MEDS ORDERED: potassium Cl 40MEQ/1/2NS 520ml 520 ML IV PRN (11:30)
[2022-10-04] MEDS ORDERED: magnesium Cl slow-release 64mg tablet PO PRN (11:30)
[2022-10-04] MEDS ORDERED: potassium Cl 20 mEq SR tablet PO PRN ×2 (11:30)
[2022-10-04] MEDS ORDERED: PERFLUTREN PROTEIN-A MICROSPHR (Optison) 0.22 MG/ML 3ML VIAL IV ONE (11:30)
[2022-10-04] MEDS ORDERED: magnesium 4gm in 100ml NS 100 ML IV PRN (11:30)
[2022-10-04] MEDS ORDERED: acetaminophen 325mg tablet PO PRN ×2 (11:30→16:30)
[2022-10-04] MEDS ORDERED: FLUT1DIS IH (14:58)
[2022-10-04] MEDS ORDERED: DIPH25CA52 PO (14:59)
[2022-10-04] MEDS ORDERED: CETI10TA19 PO (15:00)
[2022-10-04] MEDS ORDERED: CETI10TA15 PO (15:00)
[2022-10-04] MEDS ORDERED: IPRA4AER PO (15:01)
[2022-10-04] MEDS ORDERED: MAGN400T39 PO (15:02)
[2022-10-04] MEDS ORDERED: DOCU-345 PO (15:03)
[2022-10-04] MEDS ORDERED: HYDR-3965 PO (15:03)
[2022-10-04] MEDS ORDERED: FLO0.4C PO (15:04)
[2022-10-04] MEDS ORDERED: ACET-75 PO (15:05)
[2022-10-04] MEDS ORDERED: CYAN250010 PO (15:06)
[2022-10-04] MEDS ORDERED: ASCO250T68 PO (15:07)
[2022-10-04] MEDS ORDERED: CHOL100046 PO (15:07)
[2022-10-04] MEDS ORDERED: ZINC100T2 PO (15:08)
[2022-10-04] MEDS ORDERED: ascorbic acid 500mg tablet PO PRN (16:30)
[2022-10-04] MEDS ORDERED: docusate sod 100mg capsule PO PRN (16:30)
[2022-10-04] MEDS ORDERED: zinc sulfate 220mg capsule PO PRN (16:30)
[2022-10-04] MEDS ORDERED: losartan 25mg tablet PO SCH (16:30)
[2022-10-04 18:00] VITALS: BP 159/68
--- NOTE | 2022-10-04 19:06 | NUR ---
got report from ER. patient came to floor at 1750pm. put monitor on patient and obtained vitals. patient is on 4L and put a purwick. patient is very confused. does know her name. patient has reddness on right bottom leg. possible cellulitius.
[2022-10-04] MEDS: K and/or MAG REPLACEMENT MC SCH (20:00)
[2022-10-04] MEDS: albuterol 2.5 MG/3 ML nebule NEB SCH (20:04)
[2022-10-04] MEDS: budesonide 0.5mg/2ml UD nebule IH SCH (20:04)
[2022-10-04] MEDS: phenytoin sod ER 100mg capsule PO SCH (21:13)
[2022-10-04] MEDS: cetirizine 10mg tablet PO SCH (21:14)
[2022-10-04] MEDS: pramipexole 0.25mg tablet PO SCH (21:14)
[2022-10-04] MEDS: cholecalciferol (vitamin D3) 1,000 unit (25mcg) tablet PO SCH (21:14)
[2022-10-04] MEDS: tamsulosin 0.4mg capsule PO SCH (21:15)
[2022-10-04] MEDS: heparin, porcine 5000 units/ml vial SQ SCH (21:16)
[2022-10-04 22:00] VITALS: BP 137/62
[2022-10-05 02:00] VITALS: BP 110/45
[2022-10-05] MEDS: albuterol 2.5 MG/3 ML nebule NEB SCH ×4 (02:13→21:09)
--- NOTE | 2022-10-05 06:41 | NUR ---
Report given to ravi PHILLIPS
[2022-10-05 06:58] LABS: BASOPHILS % (AUTO) 0.6 % (0-1); EOSINOPHILS % (AUTO) 0.1 % (0-6); HEMOGLOBIN 11.1 g/dl (12.0-16.0); LYMPHOCYTES # (AUTO) 0.7 X10'3 (1.1-4.8); MEAN CORPUSCULAR HEMOGLOBIN 31.3 PG (27.0-31.0); MEAN CORPUSCULAR HGB CONC 32.7 g/dL (33.0-36.5); MEAN CORPUSCULAR VOLUME 95.8 FL (78-98); MEAN PLATELET VOLUME 7.6 FL (7.4-10.4); MONOCYTES # (AUTO) 0.7 X10'3 (0-0.9); MONOCYTES % (AUTO) 12.8 % (2-12); NEUTROPHILS # (AUTO) 4.2 X10'3 (1.8-7.7); NEUTROPHILS % (AUTO) 74.5 % (42-75); PLATELET COUNT 423 X10'3 (140-440); RED BLOOD COUNT 3.55 X10'6 (4.20-5.60); RED CELL DISTRIBUTION WIDTH 14.5 % (11.5-14.5); WHITE BLOOD COUNT 5.6 X10'3 (4.5-11.0)
[2022-10-05 07:00] VITALS: BP 126/50
[2022-10-05 07:03] LABS: ALBUMIN 3.1 G/DL (3.4-5.0); ANION GAP 2 (8-16); BLOOD UREA NITROGEN 22 MG/DL (7-18); BUN/CREATININE RATIO 27.2 (6.6-38.0); CALCIUM 8.6 MG/DL (8.5-10.1); CHLORIDE 99 MMOL/L (99-107); CREATININE 0.81 MG/DL (0.40-0.90); GLUCOSE 101 MG/DL (70-104); MAGNESIUM 2.4 MG/DL (1.5-2.4); POTASSIUM 5.3 MMOL/L (3.5-5.1); SODIUM 133 MMOL/L (135-145); TOTAL CARBON DIOXIDE 32.3 MMOL/L (24-32); eGFR 68 ML/MIN
[2022-10-05] MEDS: cholecalciferol (vitamin D3) 1,000 unit (25mcg) tablet PO SCH (07:45)
[2022-10-05] MEDS: cetirizine 10mg tablet PO SCH (07:45)
[2022-10-05] MEDS: cyanocobalamin 500mcg tablet PO SCH (07:46)
[2022-10-05] MEDS: phenytoin sod ER 100mg capsule PO SCH (07:49)
[2022-10-05] MEDS: heparin, porcine 5000 units/ml vial SQ SCH ×2 (07:52→19:42)
[2022-10-05] MEDS: K and/or MAG REPLACEMENT MC SCH ×2 (08:00→20:38)
[2022-10-05] MEDS: magnesium oxide 400mg tablet PO SCH (08:00)
[2022-10-05] MEDS: HYDROcodone/acetaminophen 5mg/325mg tablet PO PRN ×2 (08:15→13:10)
[2022-10-05 08:32] LABS: TOTAL CELLS COUNTED 100
[2022-10-05 08:33] LABS: ACANTHOCYTES FEW; ANISOCYTOSIS FEW; ELLIPTOCYTES FEW; LARGE PLATELETS FEW; PLATELET ESTIMATE NORMAL; POIKILOCYTOSIS FEW
[2022-10-05] MEDS: budesonide 0.5mg/2ml UD nebule IH SCH ×2 (09:04→21:09)
[2022-10-05 11:00] VITALS: BP 110/40
--- NOTE | 2022-10-05 15:15 | NUR ---
Patient in room PCU 3012. I have received report from Adriano PHILLIPS and had the opportunity to ask questions and assume patient care.
--- NOTE | 2022-10-05 16:28 | NUR ---
PAGER ID: [phone] MESSAGE: [id number] Miguel Patient informed me she found a loose Dilantin in her purse and took it. She had her scheduled Dilantin this morning at 0749. Thank you Radha DENIS [phone]
[2022-10-05 18:00] VITALS: BP 119/50
[2022-10-05] MEDS: pramipexole 0.25mg tablet PO SCH (20:31)
[2022-10-05] MEDS: tamsulosin 0.4mg capsule PO SCH (20:31)
[2022-10-05] MEDS ORDERED: losartan 25mg tablet PO SCH (21:00)
[2022-10-05 22:00] VITALS: BP 121/85
--- NOTE | 2022-10-06 00:25 | NUR ---
pt c/o C.P. EKG and vitals done and were normal. called dr gonzales to advise. after reading EKG ordered Protonix.
[2022-10-06] MEDS ORDERED: pantoprazole 40MG/NS 100ML BAG 100 ML IV SCH (00:50)
[2022-10-06] MEDS ORDERED: pantoprazole 40MG/NS 100ML BAG 100 ML IV ONE (02:10)
[2022-10-06] MEDS: albuterol 2.5 MG/3 ML nebule NEB SCH ×3 (02:47→14:35)
--- NOTE | 2022-10-06 06:24 | NUR ---
Problems reprioritized. Patient report given, questions answered & plan of care reviewed with Cayden DENIS.
[2022-10-06 07:00] VITALS: BP 118/52
[2022-10-06 07:06] LABS: BASOPHILS # (AUTO) 0.1 X10'3 (0-0.2); BASOPHILS % (AUTO) 0.9 % (0-1); EOSINOPHILS # (AUTO) 0.1 X10'3 (0-0.9); EOSINOPHILS % (AUTO) 2.1 % (0-6); HEMATOCRIT 34.8 % (35.0-45.0); HEMOGLOBIN 11.4 g/dl (12.0-16.0); LYMPHOCYTES # (AUTO) 0.9 X10'3 (1.1-4.8); LYMPHOCYTES % (AUTO) 12.8 % (21-51); MEAN CORPUSCULAR HEMOGLOBIN 31.4 PG (27.0-31.0); MEAN CORPUSCULAR HGB CONC 32.7 g/dL (33.0-36.5); MEAN CORPUSCULAR VOLUME 96.1 FL (78-98); MEAN PLATELET VOLUME 7.8 FL (7.4-10.4); MONOCYTES # (AUTO) 0.7 X10'3 (0-0.9); MONOCYTES % (AUTO) 9.4 % (2-12); NEUTROPHILS # (AUTO) 5.2 X10'3 (1.8-7.7); NEUTROPHILS % (AUTO) 74.8 % (42-75); PLATELET COUNT 488 X10'3 (140-440); RED BLOOD COUNT 3.62 X10'6 (4.20-5.60); RED CELL DISTRIBUTION WIDTH 14.5 % (11.5-14.5)
[2022-10-06 07:13] LABS: ALBUMIN 3.1 G/DL (3.4-5.0); ANION GAP 1 (8-16); BLOOD UREA NITROGEN 20 MG/DL (7-18); BUN/CREATININE RATIO 30.8 (6.6-38.0); CALCIUM 8.8 MG/DL (8.5-10.1); CHLORIDE 100 MMOL/L (99-107); CREATININE 0.65 MG/DL (0.40-0.90); GLUCOSE 108 MG/DL (70-104); MAGNESIUM 2.5 MG/DL (1.5-2.4); POTASSIUM 5.1 MMOL/L (3.5-5.1); SODIUM 133 MMOL/L (135-145); eGFR 87 ML/MIN
--- NOTE | 2022-10-06 07:42 | NUR ---
Patient in room PCU 3012. I have received report from Stephania DENIS and had the opportunity to ask questions and assume patient care. Pt sleeping right side lying, eyes closed, no distress noted, Pt breathing even and unlabored on continuous oxygen at 3 LPM via nasal cannula Addendum: 10/06/22 at 0746 by Cayden Valderrama LVN Amended: Links added.
[2022-10-06] MEDS: K and/or MAG REPLACEMENT MC SCH (08:00)
[2022-10-06] MEDS: phenytoin sod ER 100mg capsule PO SCH (08:00)
[2022-10-06] MEDS: cholecalciferol (vitamin D3) 1,000 unit (25mcg) tablet PO SCH (08:01)
[2022-10-06] MEDS: cyanocobalamin 500mcg tablet PO SCH (08:01)
[2022-10-06] MEDS: magnesium oxide 400mg tablet PO SCH (08:01)
[2022-10-06] MEDS: cetirizine 10mg tablet PO SCH (08:01)
[2022-10-06] MEDS: heparin, porcine 5000 units/ml vial SQ SCH (08:02)
[2022-10-06] MEDS: budesonide 0.5mg/2ml UD nebule IH SCH (08:14)
--- NOTE | 2022-10-06 08:44 | NUR ---
Paged Page Sent promotional table spacer PAGER ID: [phone] MESSAGE: [id number]- Parvez. Hoa 5.4. NA 134. How would you like to proceed? Cayden Valderrama LVN Addendum: 10/06/22 at 0845 by Cayden Valderrama LVN Wrong patient.
[2022-10-06] MEDS: HYDROcodone/acetaminophen 5mg/325mg tablet PO PRN (09:44)
[2022-10-06 11:00] VITALS: BP 123/53
[2022-10-06] MEDS ORDERED: CARV3.12 PO (11:32)
[2022-10-06] MEDS ORDERED: FURO-150 PO (11:32)
[2022-10-06] MEDS ORDERED: FAMO-128 PO (11:34)
[2022-10-06] MEDS ORDERED: DOXY100C2 PO (11:34)
[2022-10-06] MEDS ORDERED: LOSA25TA41 PO (11:34)
[2022-10-06] MEDS ORDERED: PRED10TA23 PO (11:34)
--- NOTE | 2022-10-06 16:10 | NUR ---
all written and verbal instructions thoroughly and lenthily explained to patient and son in law. All questions answered. PIV discontinued. Telebox discontinued. Pt inogen portable concentrator brought by [facility]. Pt transferred to portable concentrator. Pt donned disposable brief. All belongings collected and placed in personal belongings bag. Provided belongings to [facility] including cell phone, glasses, and purse. Pt ambulated to lobby via wheelchair. Addendum: 10/06/22 at 1652 by Cayden Valderrama LVN Amended: Links added.
== END 2022-10-06 16:13 | disposition home health service (06) | DRG 189 ==
LOC: ER 08:08 → ED HOLD 11:34 → PCU 3S 17:47
PROVIDERS: ADMIT Internal Medicine; ATTEND Internal Medicine
DX: J96.21 Acute and chronic respiratory failure with hypoxia (principal); I50.23 Acute on chronic systolic (congestive) heart failure; J44.1 Chronic obstructive pulmonary disease with (acute) exacerbation; L03.115 Cellulitis of right lower limb; J45.901 Unspecified asthma with (acute) exacerbation; E87.1 Hypo-osmolality and hyponatremia; I11.0 Hypertensive heart disease with heart failure; E87.6 Hypokalemia; Z20.822 Contact with and (suspected) exposure to COVID-19; Z87.11 Personal history of peptic ulcer disease; Z87.442 Personal history of urinary calculi; Z87.891 Personal history of nicotine dependence; Z88.0 Allergy status to penicillin; Z88.1 Allergy status to other antibiotic agents; Z88.2 Allergy status to sulfonamides; Z90.710 Acquired absence of both cervix and uterus
CPT/HCPCS: 36415; 71045; 80048; 80053; 83735; 83880; 84484; 85007; 85025; 87081; 87635; 87811; 93005; 93306; 94640; 94760; 96374; 96375; 97161; 97530; 99285; C9113; G0378; J1644; J2060; J2405; J2930

== ENCOUNTER 2022-10-10 16:01 | Emergency (ER) | payer BC ==
[~2022-10-10 16:01] MED LIST changes: +ACET-75 PO; +ASCO250T68 PO; -ASPI-1265 PO; +CARV3.12 PO; +CHOL100046 PO; +CYAN250010 PO; -DILT180C90 PO; +DOCU-345 PO; +DOXY100C2 PO; +FAMO-128 PO; +FLO0.4C PO; +FLUT1DIS IH; +FURO-150 PO; +HYDR-3965 PO; +IPRA4AER PO; -LIDO700A32 TOP; +LOSA25TA41 PO; +MAGN400T39 PO; -PANT40TA54 PO; +PRED10TA23 PO; -SUCR1ORA15 PO; +ZINC100T2 PO
[2022-10-10 19:25] LABS: ALANINE AMINOTRANSFERASE 21 U/L (12-78); ALBUMIN 3.2 G/DL (3.4-5.0); ALKALINE PHOSPHATASE 101 IU/L (46-116); ANION GAP 5 (8-16); ASPARTATE AMINO TRANSFERASE 12 U/L (10-37); BILIRUBIN,TOTAL 0.3 MG/DL (0.1-1.0); BLOOD UREA NITROGEN 8 MG/DL (7-18); BUN/CREATININE RATIO 13.6 (10.0-20.0); CALCIUM 8.8 MG/DL (8.5-10.1); CHLORIDE 94 MMOL/L (99-107); CREATININE 0.59 MG/DL (0.40-0.90); GLUCOSE 106 MG/DL (70-104); POTASSIUM 4.4 MMOL/L (3.5-5.1); SODIUM 133 MMOL/L (135-145); TOTAL PROTEIN 6.5 G/DL (6.4-8.2); eGFR > 90 ML/MIN
[2022-10-10 19:32] LABS: CLARITY,URINE CLOUDY (Clear); COLOR,URINE YELLOW (Yellow); GLUCOSE, URINE NEGATIVE (Neg); KETONES,URINE NEGATIVE (Neg); LEUKOCYTE ESTERASE ,URINE SMALL (Neg); NITRITES, URINE NEGATIVE (Neg); OCCULT BLOOD,URINE SMALL (Neg); PROTEIN,URINE TRACE mg/dl (Neg)
[2022-10-10 19:41] LABS: UA COLLECTION TYPE STRAIGHT CATH
[2022-10-10 19:42] LABS: BACTERIA,URINE 4+ /HPF (Neg); SQUAMOUS EPITHELIAL CELL,UR MANY /LPF (FEW)
[2022-10-10 19:43] LABS: AMORPHOUS PHOSPHATES 2+
[2022-10-10 19:45] LABS: TRANSITIONAL EPI CELLS,URINE MANY /HPF; WBC,URINE 50-100 /HPF (0-4)
[2022-10-10] MEDS ORDERED: azithromycin 250mg tablet PO ONE (19:45)
--- NOTE | 2022-10-10 19:48 | NUR ---
Patient is laying on gurney in no obvious distress and talking on the phone
[2022-10-10] MEDS ORDERED: AZIT-31 PO (19:56)
[2022-10-10 20:18] LABS: BASOPHILS # (AUTO) 0.1 X10'3 (0-0.2); BASOPHILS % (AUTO) 1.1 % (0-1); EOSINOPHILS # (AUTO) 0.4 X10'3 (0-0.9); EOSINOPHILS % (AUTO) 4.4 % (0-6); HEMATOCRIT 37.2 % (35.0-45.0); HEMOGLOBIN 12.6 g/dl (12.0-16.0); LYMPHOCYTES # (AUTO) 1.2 X10'3 (1.1-4.8); LYMPHOCYTES % (AUTO) 14.6 % (21-51); MEAN CORPUSCULAR HEMOGLOBIN 31.8 PG (27.0-31.0); MEAN CORPUSCULAR HGB CONC 33.8 g/dL (33.0-36.5); MEAN CORPUSCULAR VOLUME 94.1 FL (78-98); MEAN PLATELET VOLUME 7.1 FL (7.4-10.4); MONOCYTES # (AUTO) 0.8 X10'3 (0-0.9); NEUTROPHILS # (AUTO) 5.9 X10'3 (1.8-7.7); NEUTROPHILS % (AUTO) 69.9 % (42-75); PLATELET COUNT 570 X10'3 (140-440); RED BLOOD COUNT 3.95 X10'6 (4.20-5.60); RED CELL DISTRIBUTION WIDTH 14.3 % (11.5-14.5); WHITE BLOOD COUNT 8.4 X10'3 (4.5-11.0)
[2022-10-10 20:46] VITALS: BP 98/73
[2022-10-11] MEDS ORDERED: FAMO20TA8 PO (12:46)
[2022-10-11] MEDS ORDERED: FURO20TA4 PO (12:46)
[2022-10-11] MEDS ORDERED: PRED10TA PO (12:46)
[2022-10-11] MEDS ORDERED: CARV3.122 PO (12:46)
[2022-10-11] MEDS ORDERED: CYAN100097 PO (12:47)
== END 2022-10-10 21:03 | disposition home or self-care (01) ==
LOC: ER 16:02
DX: N39.0 Urinary tract infection, site not specified (principal); J44.9 Chronic obstructive pulmonary disease, unspecified; K21.9 Gastro-esophageal reflux disease without esophagitis; I10 Essential (primary) hypertension; Z88.0 Allergy status to penicillin; Z88.2 Allergy status to sulfonamides; Z88.5 Allergy status to narcotic agent; Z91.013 Allergy to seafood; Z90.710 Acquired absence of both cervix and uterus
CPT/HCPCS: 36415; 80053; 81001; 85025; 87077; 87088; 87186; 99284; A4353

== ENCOUNTER 2022-10-11 01:11 | Inpatient (IN) | payer BC ==
[~2022-10-11] VITALS: Ht 165.1 cm; Wt 65.0 kg
[~2022-10-11 01:11] MED LIST changes: +AZIT-31 PO
[2022-10-11 01:59] LABS: BASOPHILS # (AUTO) 0.1 X10'3 (0-0.2); BASOPHILS % (AUTO) 1.1 % (0-1); EOSINOPHILS # (AUTO) 0.3 X10'3 (0-0.9); EOSINOPHILS % (AUTO) 3.1 % (0-6); HEMATOCRIT 39.9 % (35.0-45.0); HEMOGLOBIN 13.3 g/dl (12.0-16.0); LYMPHOCYTES # (AUTO) 1.1 X10'3 (1.1-4.8); LYMPHOCYTES % (AUTO) 11.3 % (21-51); MEAN CORPUSCULAR HEMOGLOBIN 31.5 PG (27.0-31.0); MEAN CORPUSCULAR HGB CONC 33.3 g/dL (33.0-36.5); MEAN CORPUSCULAR VOLUME 94.5 FL (78-98); MEAN PLATELET VOLUME 7.8 FL (7.4-10.4); MONOCYTES # (AUTO) 1.1 X10'3 (0-0.9); MONOCYTES % (AUTO) 11.8 % (2-12); NEUTROPHILS % (AUTO) 72.7 % (42-75); PLATELET COUNT 549 X10'3 (140-440); RED BLOOD COUNT 4.22 X10'6 (4.20-5.60); RED CELL DISTRIBUTION WIDTH 14.1 % (11.5-14.5); WHITE BLOOD COUNT 9.6 X10'3 (4.5-11.0)
[2022-10-11 02:04] LABS: ALANINE AMINOTRANSFERASE 17 U/L (12-78); ALBUMIN 3.4 G/DL (3.4-5.0); ALKALINE PHOSPHATASE 105 IU/L (46-116); ANION GAP 8 (8-16); ASPARTATE AMINO TRANSFERASE 12 U/L (10-37); BILIRUBIN,TOTAL 0.4 MG/DL (0.1-1.0); BLOOD UREA NITROGEN 9 MG/DL (7-18); BUN/CREATININE RATIO 14.5 (10.0-20.0); CHLORIDE 94 MMOL/L (99-107); CREATININE 0.62 MG/DL (0.40-0.90); GLUCOSE 111 MG/DL (70-104); POTASSIUM 4.4 MMOL/L (3.5-5.1); SODIUM 133 MMOL/L (135-145); TOTAL CARBON DIOXIDE 31.4 MMOL/L (24-32); TOTAL PROTEIN 6.7 G/DL (6.4-8.2); eGFR > 90 ML/MIN
[2022-10-11] MEDS ORDERED: ipratropium/albuterol 3ml nebule NEB ONE (08:45)
--- NOTE | 2022-10-11 08:49 | NUR ---
RT AND MD AT BEDSIDE - PT REPORTS SHE IS SOB AND SHE IS HAVING LOW 02 SATS. RT GIVING SVN TREATMENT AT THIS TIME. STILL AWAITING BLOOD DONOR RECRUITER CONSULT
[2022-10-11] MEDS ORDERED: methylPREDNISolone sod succ 125mg/2ml vial IV ONE (08:55)
[2022-10-11] MEDS ORDERED: albuterol 2.5 MG/3 ML nebule CONTNEB PRN ×2 (09:20→10:20)
[2022-10-11] MEDS ORDERED: cephalexin 500mg capsule PO ONE (10:00)
--- NOTE | 2022-10-11 10:15 | NUR ---
PT ON CONT NEB - SHE DROPPED HER SATS INTO THE 70'S WHEN SHE WAS ON RM AIR. RADIOLOGY AT BEDSIDE FOR CHEST XRAY.
--- NOTE | 2022-10-11 10:47 | NUR ---
PT ASSISTED TO BEDSIDE COMMODE AND BACK TO BED. SHE REQUIRES TOTAL ASSIST TO TRANSFER. PT STATES SHE FEELS MUCH BETTER AND COULD, "RUN AROUND THE BUILDING"
--- NOTE | 2022-10-11 12:17 | NUR ---
PT BECAME QUITE UPSET WHEN HER DAUGHTER ARRIVED. SHE ASKED THAT SHE NOT BE ALLOWED TO VISIT ANYMORE. HOSPITALIST AT BEDSIDE FOR ADMISSION.
[2022-10-11] MEDS ORDERED: magnesium 4gm in 100ml NS 100 ML IV PRN (12:35)
[2022-10-11] MEDS ORDERED: potassium Cl 20 mEq SR tablet PO PRN ×2 (12:35)
[2022-10-11] MEDS ORDERED: magnesium Cl slow-release 64mg tablet PO PRN (12:35)
[2022-10-11] MEDS ORDERED: acetaminophen 325mg tablet PO PRN (12:35)
[2022-10-11] MEDS ORDERED: potassium Cl 40MEQ/1/2NS 520ml 520 ML IV PRN (12:35)
[2022-10-11] MEDS ORDERED: FAMO20TA8 PO (12:46)
[2022-10-11] MEDS ORDERED: PRED10TA PO (12:46)
[2022-10-11] MEDS ORDERED: FURO20TA4 PO (12:46)
[2022-10-11] MEDS ORDERED: CARV3.122 PO (12:46)
[2022-10-11] MEDS ORDERED: CYAN100097 PO (12:47)
--- NOTE | 2022-10-11 13:02 | NUR ---
[facility] REQUESTING 602 FORM BUT STATES THAT THEY CAN ACCEPT PT WHEN SHE IS READY FOR D\C. YADI WINTER [phone] IS WHO TO CONTACT WHEN SHE IS READY FOR D\C.
--- NOTE | 2022-10-11 13:32 | NUR ---
[facility] CONTACTED AND THEY ARE AWARE OF THE D\C PLAN
--- NOTE | 2022-10-11 14:40 | NUR ---
PT PLACED ON HOSPITAL BED FOR COMFORT. SHE IS ASSISTED TO BSC COMMODE AT THIS TIME WELL.
--- NOTE | 2022-10-11 16:33 | NUR ---
ELIN CALLED TO INFORM US PATIENT HAD BEEN CALLING 911 FROM CELL PHONE. PATIENT UNAWARE OF CALLING. CELL PHONE TAKEN FROM PATIENT AND PUT ON BEDSIDE TABLE.
[2022-10-11] MEDS: albuterol 2.5 MG/3 ML nebule NEB SCH ×3 (17:08→22:40)
[2022-10-11 19:40] VITALS: BP 160/74
[2022-10-11] MEDS: heparin, porcine 5000 units/ml vial SQ SCH (20:50)
[2022-10-11] MEDS: methylPREDNISolone sod succ/PF 40mg inj. IV SCH (20:50)
[2022-10-11] MEDS ORDERED: temazepam 15mg capsule PO PRN (21:00)
[2022-10-11 21:12] VITALS: BP 138/68
[2022-10-11 22:00] VITALS: BP 156/75
--- NOTE | 2022-10-12 00:34 | NUR ---
PT WANTED SOMETHING TO SLEEP AND WAS GIVEN RESTORIL. PT SLEPT FOR ABOUT 30 MINUTES AND WOKE UP COMPLAINING OF SOMETHING PULLING HER MUSCLES. HER O2 SATS DROPPER BELOW 90% ON 2L BUMPED HER UP TO 3 L AND WAS SATTING AT 91% WAS TRYING TO GET OUT OF BED AND WAS AGITATED. PT IS NOW RESTING AGAIN BUT IS MOVING HER LEGS IN HER SLEEP.
--- NOTE | 2022-10-12 02:03 | NUR ---
PAGER ID: [phone] MESSAGE: PT RM 349A YOHANA ROACH PT IS RETAINING URINE BLADDER SCANNED GREATER THAN 491 ML IN BLADDER
--- NOTE | 2022-10-12 02:34 | NUR ---
PAGER ID: [phone] MESSAGE: SECOND PAGE PT RM 349A LEONID ROACHZABETH BLADDER SCANNED HAD GREATER THAN 491 ML IN BLADDER. PLEASE ADVISE HAM [phone]
--- NOTE | 2022-10-12 02:40 | NUR ---
DR CHAWLA ORDERED STRAIGHT CATH FOR PT BECAUSE PT HAD GREATER THAN 491 ML IN BLADDER WHEN BLADDER SCANNED. PT HAD AN INCONTINENT VOID PRIOR TO CATH INSERTION HAD 400 ML OUT. PT TOLERATED WELL AND APPEARS TO BE MUCH MORE COMFORTABLE AND IS NOW RESTING WITH EYES CLOSED.
[2022-10-12] MEDS: albuterol 2.5 MG/3 ML nebule NEB SCH ×5 (03:06→19:56)
[2022-10-12 03:10] LABS: CLARITY,URINE CLOUDY (Clear); COLOR,URINE YELLOW (Yellow); GLUCOSE, URINE NEGATIVE (Neg); KETONES,URINE NEGATIVE (Neg); LEUKOCYTE ESTERASE ,URINE MODERATE (Neg); NITRITES, URINE POSITIVE (Neg); OCCULT BLOOD,URINE MODERATE (Neg); PROTEIN,URINE TRACE mg/dl (Neg)
[2022-10-12 03:16] LABS: UA COLLECTION TYPE FOLEY CATH
[2022-10-12 03:18] LABS: BACTERIA,URINE 3+ /HPF (Neg); SQUAMOUS EPITHELIAL CELL,UR MANY /LPF (FEW); WBC,URINE TNTC /HPF (0-4)
[2022-10-12 03:20] LABS: TRANSITIONAL EPI CELLS,URINE MODERATE /HPF
--- NOTE | 2022-10-12 06:29 | NUR ---
Problems reprioritized. Patient report given, questions answered & plan of care reviewed with JACQUELINE ROY.
[2022-10-12 06:30] VITALS: BP 156/79
--- NOTE | 2022-10-12 06:31 | NUR ---
assuming care with primary nurse JACQUELINE Leiva
[2022-10-12 06:47] LABS: EOSINOPHILS % (AUTO) 0 % (0-6); HEMOGLOBIN 12.6 g/dl (12.0-16.0); LYMPHOCYTES # (AUTO) 0.5 X10'3 (1.1-4.8); MEAN PLATELET VOLUME 8.5 FL (7.4-10.4); MONOCYTES # (AUTO) 0.5 X10'3 (0-0.9); NEUTROPHILS # (AUTO) 5.8 X10'3 (1.8-7.7)
[2022-10-12 06:50] LABS: BASOPHILS % (AUTO) 0.4 % (0-1); HEMATOCRIT 37.9 % (35.0-45.0); LYMPHOCYTES % (AUTO) 7.9 % (21-51); MEAN CORPUSCULAR HEMOGLOBIN 31.4 PG (27.0-31.0); MEAN CORPUSCULAR HGB CONC 33.3 g/dL (33.0-36.5); MEAN CORPUSCULAR VOLUME 94.3 FL (78-98); MONOCYTES % (AUTO) 7.2 % (2-12); NEUTROPHILS % (AUTO) 84.5 % (42-75); RED BLOOD COUNT 4.02 X10'6 (4.20-5.60); RED CELL DISTRIBUTION WIDTH 14.4 % (11.5-14.5); WHITE BLOOD COUNT 6.8 X10'3 (4.5-11.0)
[2022-10-12 06:53] VITALS: BP 149/88
[2022-10-12 06:58] LABS: ALANINE AMINOTRANSFERASE 17 U/L (12-78); ALBUMIN 3.7 G/DL (3.4-5.0); ALBUMIN/GLOBULIN RATIO 1.1 (1.1-1.5); ALKALINE PHOSPHATASE 100 IU/L (46-116); ANION GAP 7 (8-16); ASPARTATE AMINO TRANSFERASE 17 U/L (10-37); BILIRUBIN,TOTAL 0.4 MG/DL (0.1-1.0); BLOOD UREA NITROGEN 14 MG/DL (7-18); BUN/CREATININE RATIO 22.2 (10.0-20.0); CALCIUM 9.1 MG/DL (8.5-10.1); CHLORIDE 94 MMOL/L (99-107); CREATININE 0.63 MG/DL (0.40-0.90); GLUCOSE 129 MG/DL (70-104); POTASSIUM 4.7 MMOL/L (3.5-5.1); SODIUM 133 MMOL/L (135-145); TOTAL PROTEIN 7.1 G/DL (6.4-8.2); eGFR 90 ML/MIN
--- NOTE | 2022-10-12 07:11 | NUR ---
PATIENT IS AMBULATING IN ROOM WITH PT, 2 PERSON ASSIST WITH FWW
[2022-10-12 07:37] LABS: PLATELET COUNT 564 X10'3 (140-440); PLATELET ESTIMATE INCREASED
[2022-10-12 07:38] LABS: BURR CELLS 1+; LARGE PLATELETS FEW; TEAR DROP CELLS FEW
--- NOTE | 2022-10-12 07:40 | NUR ---
PAGER ID: [phone] MESSAGE: YOHANA FULLER#[phone]- Can we please have her med req done. Pt really needs her meds, BP 156/79, HR 94. Very anxious and altered. restless leg syndrome is severe. Thank you. Abbie Paulino
[2022-10-12] MEDS: heparin, porcine 5000 units/ml vial SQ SCH ×2 (08:17→22:08)
[2022-10-12] MEDS ORDERED: HYDROcodone/acetaminophen 5mg/325mg tablet PO PRN (08:50)
[2022-10-12] MEDS ORDERED: albuterol 2.5 MG/3 ML nebule NEB PRN (09:40)
[2022-10-12 10:27] VITALS: BP 146/81
[2022-10-12 10:30] VITALS: BP 146/91
[2022-10-12] MEDS: methylPREDNISolone sod succ/PF 40mg inj. IV SCH ×2 (10:33→22:13)
[2022-10-12] MEDS: carVEDilol 3.125mg tablet PO SCH ×2 (10:39→21:57)
[2022-10-12] MEDS: phenytoin sod ER 100mg capsule PO SCH (10:41)
[2022-10-12] MEDS: losartan 25mg tablet PO SCH (10:41)
[2022-10-12] MEDS: CefTRIAXone 2gm/D5W 50ml BAG 50 ML IV SCH (12:48)
[2022-10-12] MEDS ORDERED: ipratropium 0.5 MG/2.5ML nebule IH PRN (13:00)
[2022-10-12] MEDS ORDERED: albuterol 2.5 MG/3 ML nebule NEB SCH (14:00)
--- NOTE | 2022-10-12 14:05 | NUR ---
PAGER ID: [phone] MESSAGE: Akosua Pierce#[phone]- Pt has peed very little like, incontinent, bladder scan shows 150 in blader. Nor eating or drinking much. Can I get a 1x dose Flomax and some IV fluids please. Thank You. Abbie Paulino
[2022-10-12] MEDS ORDERED: tamsulosin 0.4mg capsule PO STA (14:36)
[2022-10-12] MEDS: normal saline 1000ml 1,000 ML IV SCH (14:52)
[2022-10-12 18:00] VITALS: BP 145/79
--- NOTE | 2022-10-12 18:35 | NUR ---
Problems reprioritized. Patient report given, questions answered & plan of care reviewed with darell PHILLIPS.
[2022-10-12] MEDS: budesonide 0.5mg/2ml UD nebule IH SCH (19:56)
[2022-10-12] MEDS: pramipexole 0.25mg tablet PO SCH (21:58)
[2022-10-12 22:00] VITALS: BP 138/77
[2022-10-12] MEDS: tamsulosin 0.4mg capsule PO SCH (22:04)
--- NOTE | 2022-10-12 22:53 | NUR ---
Student documentation: I have reviewed interventions, assessments performed and documented by Tamika DALAL [facility].
[2022-10-13] MEDS: albuterol 2.5 MG/3 ML nebule NEB SCH ×7 (00:52→23:31)
[2022-10-13 06:00] VITALS: BP 162/83
--- NOTE | 2022-10-13 06:30 | NUR ---
Problems reprioritized. Patient report given, questions answered & plan of care reviewed with JACQUELINE ROY.
[2022-10-13 06:57] LABS: ALANINE AMINOTRANSFERASE 23 U/L (12-78); ALBUMIN 3.6 G/DL (3.4-5.0); ALBUMIN/GLOBULIN RATIO 1.2 (1.1-1.5); ALKALINE PHOSPHATASE 101 IU/L (46-116); ANION GAP 7 (8-16); ASPARTATE AMINO TRANSFERASE 21 U/L (10-37); BILIRUBIN,TOTAL 0.3 MG/DL (0.1-1.0); BLOOD UREA NITROGEN 16 MG/DL (7-18); BUN/CREATININE RATIO 27.6 (10.0-20.0); CALCIUM 8.7 MG/DL (8.5-10.1); CHLORIDE 96 MMOL/L (99-107); CREATININE 0.58 MG/DL (0.40-0.90); GLUCOSE 121 MG/DL (70-104); POTASSIUM 5.6 MMOL/L (3.5-5.1); SODIUM 133 MMOL/L (135-145); TOTAL CARBON DIOXIDE 30.2 MMOL/L (24-32); TOTAL PROTEIN 6.6 G/DL (6.4-8.2); eGFR > 90 ML/MIN
--- NOTE | 2022-10-13 07:06 | NUR ---
Patient in room BARRIE 349. I have received report from Tara PHILLIPS and had the opportunity to ask questions and assume patient care.
[2022-10-13] MEDS: budesonide 0.5mg/2ml UD nebule IH SCH ×2 (07:21→19:41)
[2022-10-13] MEDS: CefTRIAXone 2gm/D5W 50ml BAG 50 ML IV SCH (08:00)
[2022-10-13] MEDS: magnesium oxide 400mg tablet PO SCH (08:00)
[2022-10-13] MEDS: carVEDilol 3.125mg tablet PO SCH ×2 (08:01→19:59)
[2022-10-13] MEDS: famotidine 20mg tablet PO SCH (08:01)
[2022-10-13] MEDS: furosemide 20MG tablet PO SCH (08:01)
[2022-10-13] MEDS: methylPREDNISolone sod succ/PF 40mg inj. IV SCH (08:02)
[2022-10-13] MEDS: phenytoin sod ER 100mg capsule PO SCH (08:03)
[2022-10-13] MEDS: heparin, porcine 5000 units/ml vial SQ SCH ×2 (08:04→20:05)
[2022-10-13] MEDS: losartan 25mg tablet PO SCH (08:07)
[2022-10-13 09:12] LABS: BASOPHILS % (AUTO) 0.7 % (0-1); MONOCYTES # (AUTO) 0.4 X10'3 (0-0.9); WHITE BLOOD COUNT 5.8 X10'3 (4.5-11.0)
[2022-10-13 09:14] LABS: EOSINOPHILS % (AUTO) 0.1 % (0-6); HEMATOCRIT 39.9 % (35.0-45.0); HEMOGLOBIN 13.1 g/dl (12.0-16.0); LYMPHOCYTES # (AUTO) 0.5 X10'3 (1.1-4.8); LYMPHOCYTES % (AUTO) 9.1 % (21-51); MEAN CORPUSCULAR HEMOGLOBIN 31.1 PG (27.0-31.0); MEAN CORPUSCULAR HGB CONC 32.9 g/dL (33.0-36.5); MEAN CORPUSCULAR VOLUME 94.6 FL (78-98); MEAN PLATELET VOLUME 7.7 FL (7.4-10.4); MONOCYTES % (AUTO) 6.4 % (2-12); NEUTROPHILS # (AUTO) 4.8 X10'3 (1.8-7.7); NEUTROPHILS % (AUTO) 83.7 % (42-75); PLATELET COUNT 466 X10'3 (140-440); RED BLOOD COUNT 4.21 X10'6 (4.20-5.60); RED CELL DISTRIBUTION WIDTH 14.5 % (11.5-14.5)
[2022-10-13 10:00] VITALS: BP 156/81
[2022-10-13] MEDS: normal saline 1000ml 1,000 ML IV SCH (10:40)
--- NOTE | 2022-10-13 11:17 | NUR ---
RN TC: Pt admit DX COPD exacerbation trouble breathing impacting meals intake but drinks quite a bit of water per RN. Noted ~0-25% meals and refused breakfast this AM per RN; OLGA recommends Ensure Plus High Protein TIDWM given adequate fluids intake to assist meeting needs if physician agreeable. Addendum: 10/13/22 at [address] Amended: Links added.
[2022-10-13 12:50] VITALS: BP 154/82
--- NOTE | 2022-10-13 14:40 | NUR ---
PRESSURE ULCER EDUCATION: DEFINITION: A pressure ulcer is an area of skin that breaks down when you stay in one position too long. The constant pressure against the skin reduces the blood flow to that area and the affected tissue dies. CAUSES: "Being bedridden or in a wheelchair "Fragile skin "Having a chronic condition, such as diabetes or vascular disease "Inability to move certain parts of your body without assistance "Older age "Incontinence of urine or stool SYMPTOMS: "A reddened area that DOES NOT turn white when pressed on - this can be the beginning of a pressure ulcer "A blister, deep sore or a crater - these can be advanced pressure ulcers FIRST AID: "Relieve the pressure on this area "Keep the area clean and dry "Call your primary doctor if you see any of the above symptoms "DO NOT massage the area "DO NOT use a donut shaped or ring shaped pillow- these actually interfere with the blood flow and cause complications PREVENTION: "Check for pressure ulcers everyday "Change position at least every two hours to relieve pressure "Use items that help relieve pressure- pillows, sheepskin, foam padding, and powders. "Keep skin clean and dry "Eat healthy well balanced meals "Exercise daily IF YOU SEE ANY OF THESE SYMPTOMS WHILE IN THE HOSPITAL - TELL YOUR NURSE IMMEDIATELY. IF YOU SEE ANY OF THESE SYMPTOMS WHILE AT HOME OR HAVE ANY QUESTIONS OR CONCERNS ABOUT PRESSURE ULCERS - CALL YOUR PRIMARY DOCTOR IMMEDIATELY. Addendum: 10/13/22 at 1440 by Amy Lake LVN Amended: Links added.
--- NOTE | 2022-10-13 18:35 | NUR ---
Problems reprioritized. Patient report given, questions answered & plan of care reviewed with Morelia PHILLIPS PCU nurse.
[2022-10-13] MEDS: pramipexole 0.25mg tablet PO SCH (20:04)
[2022-10-13] MEDS: tamsulosin 0.4mg capsule PO SCH (20:05)
--- NOTE | 2022-10-14 02:00 | NUR ---
Pt. is awake alert oriented sitting up in chair most of the night. Takes po fluids and nutrition well. IV is saline locked. Pt. voids per adult diaper. Pt. became anxious and panicked when placed back to bed, pt was yelling loudly. Now resting quietly in bed no c/o pain or discomfort.
[2022-10-14] MEDS: albuterol 2.5 MG/3 ML nebule NEB SCH ×6 (03:10→23:33)
--- NOTE | 2022-10-14 06:35 | NUR ---
Patient in room BARRIE 349. I have received report from sydney rn and had the opportunity to ask questions and assume patient care.
[2022-10-14 06:46] LABS: BASOPHILS # (AUTO) 0.1 X10'3 (0-0.2); BASOPHILS % (AUTO) 0.8 % (0-1); EOSINOPHILS # (AUTO) 0.1 X10'3 (0-0.9); EOSINOPHILS % (AUTO) 0.9 % (0-6); HEMATOCRIT 34.3 % (35.0-45.0); HEMOGLOBIN 11.6 g/dl (12.0-16.0); LYMPHOCYTES # (AUTO) 1.1 X10'3 (1.1-4.8); LYMPHOCYTES % (AUTO) 12.8 % (21-51); MEAN CORPUSCULAR HEMOGLOBIN 31.9 PG (27.0-31.0); MEAN CORPUSCULAR HGB CONC 33.9 g/dL (33.0-36.5); MEAN CORPUSCULAR VOLUME 94.1 FL (78-98); MEAN PLATELET VOLUME 8.4 FL (7.4-10.4); MONOCYTES # (AUTO) 1.1 X10'3 (0-0.9); MONOCYTES % (AUTO) 12.9 % (2-12); NEUTROPHILS # (AUTO) 6.3 X10'3 (1.8-7.7); NEUTROPHILS % (AUTO) 72.6 % (42-75); PLATELET COUNT 472 X10'3 (140-440); RED BLOOD COUNT 3.65 X10'6 (4.20-5.60); RED CELL DISTRIBUTION WIDTH 14.3 % (11.5-14.5); WHITE BLOOD COUNT 8.6 X10'3 (4.5-11.0)
[2022-10-14 06:58] LABS: ALANINE AMINOTRANSFERASE 20 U/L (12-78); ALBUMIN 3.1 G/DL (3.4-5.0); ALBUMIN/GLOBULIN RATIO 1.2 (1.1-1.5); ALKALINE PHOSPHATASE 83 IU/L (46-116); ANION GAP -1 (8-16); ASPARTATE AMINO TRANSFERASE 15 U/L (10-37); BILIRUBIN,TOTAL 0.3 MG/DL (0.1-1.0); BLOOD UREA NITROGEN 17 MG/DL (7-18); BUN/CREATININE RATIO 27.4 (10.0-20.0); CALCIUM 8.2 MG/DL (8.5-10.1); CHLORIDE 96 MMOL/L (99-107); CREATININE 0.62 MG/DL (0.40-0.90); GLUCOSE 104 MG/DL (70-104); POTASSIUM 4.1 MMOL/L (3.5-5.1); SODIUM 129 MMOL/L (135-145); TOTAL CARBON DIOXIDE 33.8 MMOL/L (24-32); TOTAL PROTEIN 5.7 G/DL (6.4-8.2); eGFR > 90 ML/MIN
[2022-10-14 07:20] VITALS: BP 138/68
[2022-10-14] MEDS: budesonide 0.5mg/2ml UD nebule IH SCH ×2 (07:27→20:13)
[2022-10-14] MEDS: normal saline 1000ml 1,000 ML IV SCH (07:48)
[2022-10-14] MEDS: CefTRIAXone 2gm/D5W 50ml BAG 50 ML IV SCH (07:49)
[2022-10-14] MEDS: methylPREDNISolone sod succ/PF 40mg inj. IV SCH (07:49)
[2022-10-14] MEDS: magnesium oxide 400mg tablet PO SCH (07:50)
[2022-10-14] MEDS: famotidine 20mg tablet PO SCH (07:50)
[2022-10-14] MEDS: phenytoin sod ER 100mg capsule PO SCH (07:50)
[2022-10-14] MEDS: heparin, porcine 5000 units/ml vial SQ SCH ×2 (07:52→20:31)
[2022-10-14] MEDS: losartan 25mg tablet PO SCH (08:00)
[2022-10-14] MEDS: carVEDilol 3.125mg tablet PO SCH ×2 (08:00→20:00)
[2022-10-14] MEDS: furosemide 20MG tablet PO SCH (08:00)
--- NOTE | 2022-10-14 08:29 | NUR ---
RECEIVED URINE CULTURE RESULTS, PT HAS BEEN ADMITTED AND RESULTS FAXED TO SURGICAL FLOOR
--- NOTE | 2022-10-14 08:30 | NUR ---
PT REFUSED ALL BP MEDICATIONS. STATES THAT SHE FEELS LIKE ITS CAUSING HER TO FEEL CONFUSED. I EXPLAINED THAT SHE TAKES THESE MEDS AT HOME AND SHE SHOULD TAKE THEM TO KEEP HER BP DOWN. SHE STILL CONT TO REFUSE. NOTIFIED MD WHO EDUCATED PT ON IMPORTANCE OF TAKING BP MEDS. PT CONT TO REFUSE.
--- NOTE | 2022-10-14 08:35 | NUR ---
PAGED DR LEWIS RE: PAGER ID: [phone] MESSAGE: YOHANA ROACH. PT C/O SEVERE ITCHING. CAN I GET ORDER FOR BENADRYL? SURGICAL MAHENDRA [id number]
[2022-10-14 10:22] VITALS: BP 137/62
[2022-10-14] MEDS: sodium chloride 1gm tablet PO SCH ×2 (12:59→20:30)
--- NOTE | 2022-10-14 13:01 | NUR ---
Student Medication Administration: For this medication-pass time frame, all medication were reviewed, dispensed, administered and documented per hospital policy by Cathy Carpenter Student Nurse and Becca Hobson RN.
[2022-10-14 18:00] VITALS: BP 132/67
--- NOTE | 2022-10-14 18:22 | NUR ---
Problems reprioritized. Patient report given, questions answered & plan of care reviewed with CHAU DENIS.
--- NOTE | 2022-10-14 19:41 | NUR ---
Student documentation: I have reviewed and agree with all interventions, assessments performed and documented by Dav Carpenter student nurse and Douglas Bates student nurse, by Naa Hobson RN Instructor.
[2022-10-14] MEDS: tamsulosin 0.4mg capsule PO SCH (20:29)
[2022-10-14] MEDS: pramipexole 0.25mg tablet PO SCH (20:30)
[2022-10-14 22:00] VITALS: BP 160/79
[2022-10-15] MEDS: normal saline 1000ml 1,000 ML IV SCH ×2 (02:44→21:40)
[2022-10-15] MEDS: albuterol 2.5 MG/3 ML nebule NEB SCH ×6 (03:01→23:42)
--- NOTE | 2022-10-15 06:00 | NUR ---
I have reviewed and agree with interventions, assessments, and documentation with Yani Woodard LVN
--- NOTE | 2022-10-15 06:26 | NUR ---
Problems reprioritized. Patient report given, questions answered & plan of care reviewed with Colette PHILLIPS.
[2022-10-15 06:54] LABS: BASOPHILS # (AUTO) 0.1 X10'3 (0-0.2); BASOPHILS % (AUTO) 1.6 % (0-1); EOSINOPHILS # (AUTO) 0.2 X10'3 (0-0.9); EOSINOPHILS % (AUTO) 1.8 % (0-6); HEMATOCRIT 37.3 % (35.0-45.0); HEMOGLOBIN 12.4 g/dl (12.0-16.0); LYMPHOCYTES # (AUTO) 1.5 X10'3 (1.1-4.8); LYMPHOCYTES % (AUTO) 18.1 % (21-51); MEAN CORPUSCULAR HEMOGLOBIN 31.3 PG (27.0-31.0); MEAN CORPUSCULAR HGB CONC 33.3 g/dL (33.0-36.5); MEAN CORPUSCULAR VOLUME 93.9 FL (78-98); MEAN PLATELET VOLUME 8.6 FL (7.4-10.4); MONOCYTES % (AUTO) 12.1 % (2-12); NEUTROPHILS # (AUTO) 5.6 X10'3 (1.8-7.7); NEUTROPHILS % (AUTO) 66.4 % (42-75); PLATELET COUNT 495 X10'3 (140-440); RED BLOOD COUNT 3.97 X10'6 (4.20-5.60); RED CELL DISTRIBUTION WIDTH 14.7 % (11.5-14.5); WHITE BLOOD COUNT 8.5 X10'3 (4.5-11.0)
[2022-10-15 07:12] VITALS: BP 171/78
--- NOTE | 2022-10-15 07:12 | NUR ---
Patient in room BARRIE 349. I have received report from Liliam DENIS and had the opportunity to ask questions and assume patient care.
[2022-10-15 07:21] LABS: ALANINE AMINOTRANSFERASE 21 U/L (12-78); ALBUMIN 3.2 G/DL (3.4-5.0); ALBUMIN/GLOBULIN RATIO 1.1 (1.1-1.5); ALKALINE PHOSPHATASE 96 IU/L (46-116); ANION GAP 6 (8-16); ASPARTATE AMINO TRANSFERASE 14 U/L (10-37); BILIRUBIN,TOTAL 0.2 MG/DL (0.1-1.0); BLOOD UREA NITROGEN 9 MG/DL (7-18); CALCIUM 8.4 MG/DL (8.5-10.1); CHLORIDE 97 MMOL/L (99-107); CREATININE 0.69 MG/DL (0.40-0.90); GLUCOSE 112 MG/DL (70-104); POTASSIUM 4.5 MMOL/L (3.5-5.1); SODIUM 133 MMOL/L (135-145); TOTAL CARBON DIOXIDE 30.3 MMOL/L (24-32); TOTAL PROTEIN 6.2 G/DL (6.4-8.2); eGFR 81 ML/MIN
[2022-10-15] MEDS: budesonide 0.5mg/2ml UD nebule IH SCH ×2 (07:24→19:41)
[2022-10-15] MEDS: sodium chloride 1gm tablet PO SCH ×3 (08:19→20:12)
[2022-10-15] MEDS: carVEDilol 3.125mg tablet PO SCH ×2 (08:19→20:12)
[2022-10-15] MEDS: losartan 25mg tablet PO SCH (08:21)
[2022-10-15] MEDS: heparin, porcine 5000 units/ml vial SQ SCH ×2 (08:21→20:12)
[2022-10-15] MEDS: phenytoin sod ER 100mg capsule PO SCH (08:21)
[2022-10-15] MEDS: famotidine 20mg tablet PO SCH (08:21)
[2022-10-15] MEDS: CefTRIAXone 2gm/D5W 50ml BAG 50 ML IV SCH (08:22)
[2022-10-15] MEDS: magnesium oxide 400mg tablet PO SCH (08:23)
[2022-10-15] MEDS: methylPREDNISolone sod succ/PF 40mg inj. IV SCH (08:23)
[2022-10-15] MEDS ORDERED: ciprofloxacin 250mg tablet PO SCH (10:00)
[2022-10-15 11:00] VITALS: BP_SYST 150; BP_SYST 159; BP_DIAS 78; BP_DIAS 80
[2022-10-15 12:15] VITALS: BP 159/80
[2022-10-15] MEDS: levoFLOXACIN 750MG TABLET PO SCH (17:08)
[2022-10-15 18:19] VITALS: BP 145/58
[2022-10-15] MEDS: pramipexole 0.25mg tablet PO SCH (20:12)
[2022-10-15] MEDS: tamsulosin 0.4mg capsule PO SCH (20:12)
[2022-10-15 20:17] VITALS: BP_SYST 144; BP_SYST 148; BP_DIAS 60; BP_DIAS 62
[2022-10-15 23:54] VITALS: BP 125/81
[2022-10-16] MEDS: albuterol 2.5 MG/3 ML nebule NEB SCH ×5 (03:14→19:19)
[2022-10-16 06:00] VITALS: BP 145/80
--- NOTE | 2022-10-16 06:25 | NUR ---
Problems reprioritized. Patient report given, questions answered & plan of care reviewed with Zahraa PHILLIPS.
[2022-10-16 06:27] LABS: ALANINE AMINOTRANSFERASE 12 U/L (12-78); ALBUMIN 2.8 G/DL (3.4-5.0); ALKALINE PHOSPHATASE 87 IU/L (46-116); ANION GAP 5 (8-16); ASPARTATE AMINO TRANSFERASE 10 U/L (10-37); BILIRUBIN,TOTAL 0.3 MG/DL (0.1-1.0); BLOOD UREA NITROGEN 7 MG/DL (7-18); BUN/CREATININE RATIO 14.6 (10.0-20.0); CALCIUM 8.2 MG/DL (8.5-10.1); CHLORIDE 98 MMOL/L (99-107); CREATININE 0.48 MG/DL (0.40-0.90); GLUCOSE 98 MG/DL (70-104); POTASSIUM 4.1 MMOL/L (3.5-5.1); SODIUM 131 MMOL/L (135-145); TOTAL CARBON DIOXIDE 28.4 MMOL/L (24-32); TOTAL PROTEIN 5.6 G/DL (6.4-8.2); eGFR > 90 ML/MIN
[2022-10-16 06:32] LABS: BASOPHILS # (AUTO) 0.1 X10'3 (0-0.2); BASOPHILS % (AUTO) 0.7 % (0-1); EOSINOPHILS # (AUTO) 0.3 X10'3 (0-0.9); EOSINOPHILS % (AUTO) 2.8 % (0-6); HEMATOCRIT 36.4 % (35.0-45.0); HEMOGLOBIN 12.1 g/dl (12.0-16.0); LYMPHOCYTES # (AUTO) 1.1 X10'3 (1.1-4.8); LYMPHOCYTES % (AUTO) 12.6 % (21-51); MEAN CORPUSCULAR HEMOGLOBIN 31.4 PG (27.0-31.0); MEAN CORPUSCULAR HGB CONC 33.3 g/dL (33.0-36.5); MEAN CORPUSCULAR VOLUME 94.5 FL (78-98); MEAN PLATELET VOLUME 8.9 FL (7.4-10.4); MONOCYTES % (AUTO) 10.6 % (2-12); NEUTROPHILS # (AUTO) 6.6 X10'3 (1.8-7.7); NEUTROPHILS % (AUTO) 73.3 % (42-75); PLATELET COUNT 436 X10'3 (140-440); RED BLOOD COUNT 3.86 X10'6 (4.20-5.60); RED CELL DISTRIBUTION WIDTH 14.5 % (11.5-14.5); WHITE BLOOD COUNT 9.1 X10'3 (4.5-11.0)
--- NOTE | 2022-10-16 06:48 | NUR ---
Problems reprioritized. Patient report given, questions answered & plan of care reviewed with JACQUELINE Alvarenga
[2022-10-16] MEDS: budesonide 0.5mg/2ml UD nebule IH SCH ×2 (07:24→19:20)
[2022-10-16] MEDS: sodium chloride 1gm tablet PO SCH ×3 (08:15→19:52)
[2022-10-16] MEDS: magnesium oxide 400mg tablet PO SCH (08:15)
[2022-10-16] MEDS: phenytoin sod ER 100mg capsule PO SCH (08:15)
[2022-10-16] MEDS: famotidine 20mg tablet PO SCH (08:15)
[2022-10-16] MEDS: heparin, porcine 5000 units/ml vial SQ SCH ×2 (08:21→19:51)
[2022-10-16] MEDS: losartan 25mg tablet PO SCH (08:21)
[2022-10-16] MEDS: methylPREDNISolone sod succ/PF 40mg inj. IV SCH ×3 (08:21→19:51)
[2022-10-16] MEDS: carVEDilol 3.125mg tablet PO SCH ×2 (08:21→19:52)
[2022-10-16 11:00] VITALS: BP 155/65
--- NOTE | 2022-10-16 12:24 | NUR ---
patient refused orthostatics this morning. Lin made aware and she stated that is okay. Will continue to monitor
[2022-10-16] MEDS: levoFLOXACIN 750MG TABLET PO SCH (12:40)
--- NOTE | 2022-10-16 16:39 | NUR ---
PAGER ID: [phone] MESSAGE: Rebecca Yates [phone] re: 349a Kari, patient is starting to have sundowners and acting out, but has nothing for anxiety or agitation at this time. Did you want to add something to her medication list. Thanks
--- NOTE | 2022-10-16 17:29 | NUR ---
Patients son came to visit and patient become anxious about "forgetting names and things slipping he mind" Patient stated she is nervous she is hurting her family. patient took a bit to calm down, son went back in room to sit with patient and she is doing much better. RN paged DR Ceballos to make aware, no further interventions or medications at this time. Will continue to monitor.
[2022-10-16 18:00] VITALS: BP 141/91
--- NOTE | 2022-10-16 18:22 | NUR ---
Problems reprioritized. Patient report given, questions answered & plan of care reviewed with Terrie PHILLIPS
[2022-10-16] MEDS: tamsulosin 0.4mg capsule PO SCH (19:51)
[2022-10-16] MEDS: pramipexole 0.25mg tablet PO SCH (19:52)
[2022-10-16 22:00] VITALS: BP 143/73
[2022-10-17] VITALS (7 sets, daily range): BP systolic 122–192; BP diastolic 71–97
[2022-10-17] MEDS: albuterol 2.5 MG/3 ML nebule NEB SCH ×7 (00:28→23:03)
[2022-10-17] MEDS: normal saline 1000ml 1,000 ML IV SCH (01:46)
[2022-10-17] MEDS ORDERED: diphenhydrAMINE 50 mg/ml inj IV PRN (01:50)
[2022-10-17] MEDS: ondansetron/PF 4mg/2ml inj IV PRN ×2 (05:24→20:56)
[2022-10-17] MEDS: budesonide 0.5mg/2ml UD nebule IH SCH ×2 (07:11→19:47)
[2022-10-17] MEDS: methylPREDNISolone sod succ/PF 40mg inj. IV SCH ×2 (08:16→20:21)
--- NOTE | 2022-10-17 08:16 | NUR ---
Paged Dr Magalie Rivera 349A. FYI: BP 164/81, HR 80. Pt refusing all PO meds. 2 RNs attempted. No IV BP meds available. Steph [id number] Addendum: 10/17/22 at 920 by Steph Gamez RN Pt amenable to taking meds after RN Magdalena and this RN spent 40 minutes discussing. PRN IV hydralazine now available per Dr Mejias Addendum: 10/17/22 at 0934 by Steph Gamez RN Pt throwing items off tray. Ordering safety tray Addendum: 10/17/22 at 1200 by Steph Gamez RN 2 RN attempts to give levoquin with Erin (daughter at bedside). Successful after 2 attempts
[2022-10-17] MEDS: heparin, porcine 5000 units/ml vial SQ SCH ×3 (08:17→20:23)
[2022-10-17] MEDS: losartan 25mg tablet PO SCH (08:18)
[2022-10-17] MEDS: phenytoin sod ER 100mg capsule PO SCH (08:18)
[2022-10-17] MEDS: carVEDilol 3.125mg tablet PO SCH ×2 (08:19→20:19)
[2022-10-17] MEDS: sodium chloride 1gm tablet PO SCH ×3 (08:19→20:21)
[2022-10-17] MEDS: magnesium oxide 400mg tablet PO SCH (08:19)
[2022-10-17] MEDS: famotidine 20mg tablet PO SCH (08:19)
[2022-10-17] MEDS ORDERED: hydrALAZINE 20mg/ml inj. IV PRN (08:30)
[2022-10-17] MEDS: levoFLOXACIN 750MG TABLET PO SCH (11:13)
[2022-10-17] MEDS ORDERED: ziprasidone IM 20mg inj **IM only IM PRN (12:05)
--- NOTE | 2022-10-17 14:05 | NUR ---
Malnutrition Consult: Pt admit DX UTI, acute on chronic COPD exacerbation, and dementia per EMR. PO remains poor ~25% vs refusing meals past 5 days on heart healthy diet though serum Na low LOS taking PO NS TID per EMR. Pt on 3 LNC refuses PO meds at times threw items on meal tray this AM refused breakfast now w/ caution tray ordered in EMR. RD d/w RN who reports pt requires consistent encouragement to influence meal acceptance currently eating lunch pending intake documentation. Per RN, pt likely to accept ONS though dislikes scrambled eggs and applesauce. Dietary notified of food preferences and RD paged DO regarding liberalization to regular diet since heart healthy not indicated. DO also notified of RD recs Ensure Plus High Protein TIDWM to assist meeting needs. Pt AOx1/confused likely impacting PO trends also unsure of wt loss hx. Pt appears age-appropriate per H&P w/ no edema/wounds, mild weakness, and current scaled wt up 9kg from last scaled wt April 14 per EMR. Lacks minimum malnutrition criteria at this time though certainly at risk given current PO trends. LBM 10/17. Will monitor for further PO acceptance and nutrition intervention needs this admit. Rec: 1. liberalize to regular diet; heart healthy not indicated w/ low serum Na LOS taking PO NS TID; assistance at meals-encourage PO 2. honor pt food preferences; dislikes applesauce, hard boiled eggs WB 3. Ensure Plus High Protein TIDWM; pending physician verification in EMR 4. If continued meal refusals despite ONS/encouragement/assistance consider EN nutrition support to optimize nutrition status 5. bowel care per rx 6. weekly wts Addendum: 10/17/22 at [address] Amended: Links added.
[2022-10-17] MEDS: LACTOSE-REDUCED FOOD 237ML LIQUID PO SCH (18:00)
--- NOTE | 2022-10-17 18:30 | NUR ---
Patient in room BARRIE 349. I have received report from Steph PHILLIPS and had the opportunity to ask questions and assume patient care.
[2022-10-17] MEDS: pramipexole 0.25mg tablet PO SCH (20:19)
[2022-10-17] MEDS: tamsulosin 0.4mg capsule PO SCH (20:22)
[2022-10-17] MEDS: acetaminophen 325mg tablet PO PRN (20:26)
[2022-10-18] MEDS: albuterol 2.5 MG/3 ML nebule NEB SCH ×6 (03:16→23:52)
[2022-10-18] MEDS ORDERED: LORazepam 2 mg/ml vial ONE (04:06)
[2022-10-18] MEDS ORDERED: LORazepam 2 mg/ml vial IV PRN (04:25)
--- NOTE | 2022-10-18 04:30 | NUR ---
At 0400, patient started making noises. Ran into room and witnessed patient having a seizure. Lasted about 1 minute, head and airway protected. supervisor wet pour over-rode ativan 2mg and VS taken: 37.4Ax, 66,16, 130/58, O pain. 1 mg ativan given and the 2nd mg wasted. Called who ordered dilantin level lab and ativan 1mg prn q8hr for seizures. Addendum: 10/18/22 at 0443 by Gabriella Loomis RN Accu check also taken and blood sugar was 131. Oxygen level had dipped down to 88% and o2 increased up to 4L and NC placed in mouth. Soon came back up to 98% and oxygen now titrated back down to 2L. Patient is now resting in the postical state. Bed is low/locked and seizure pads on rails.
--- NOTE | 2022-10-18 06:20 | NUR ---
Patient report given to Steph dumont RN. Patient remains in postictal state. Bed low/locked with 3 side rails up with seizure pads in place.
--- NOTE | 2022-10-18 07:18 | NUR ---
Paged Dr Mejias: cira 349A. FYI: pt had seizure ~ 0400. Drawing dilantin level now, can we please order CMP, CBC? Lab kris enough for both just in case. Steph [id number]
[2022-10-18 07:36] VITALS: BP 119/48
[2022-10-18] MEDS: famotidine 20mg tablet PO SCH (08:00)
[2022-10-18] MEDS: phenytoin sod ER 100mg capsule PO SCH (08:00)
[2022-10-18] MEDS: budesonide 0.5mg/2ml UD nebule IH SCH ×2 (08:00→20:04)
[2022-10-18] MEDS: sodium chloride 1gm tablet PO SCH ×3 (08:00→19:44)
[2022-10-18] MEDS: carVEDilol 3.125mg tablet PO SCH ×2 (08:00→19:44)
[2022-10-18] MEDS: losartan 25mg tablet PO SCH (08:00)
[2022-10-18] MEDS: magnesium oxide 400mg tablet PO SCH (08:00)
[2022-10-18] MEDS: LACTOSE-REDUCED FOOD 237ML LIQUID PO SCH ×3 (08:00→19:00)
[2022-10-18 08:21] LABS: BASOPHILS % (AUTO) 0.5 % (0-1); EOSINOPHILS % (AUTO) 0.1 % (0-6); HEMATOCRIT 33.5 % (35.0-45.0); HEMOGLOBIN 11.2 g/dl (12.0-16.0); LYMPHOCYTES # (AUTO) 0.6 X10'3 (1.1-4.8); LYMPHOCYTES % (AUTO) 7.2 % (21-51); MEAN CORPUSCULAR HEMOGLOBIN 31.7 PG (27.0-31.0); MEAN CORPUSCULAR HGB CONC 33.4 g/dL (33.0-36.5); MEAN CORPUSCULAR VOLUME 94.9 FL (78-98); MEAN PLATELET VOLUME 8.6 FL (7.4-10.4); MONOCYTES # (AUTO) 0.4 X10'3 (0-0.9); MONOCYTES % (AUTO) 4.4 % (2-12); NEUTROPHILS # (AUTO) 7.9 X10'3 (1.8-7.7); NEUTROPHILS % (AUTO) 87.8 % (42-75); PLATELET COUNT 402 X10'3 (140-440); RED BLOOD COUNT 3.52 X10'6 (4.20-5.60); RED CELL DISTRIBUTION WIDTH 14.4 % (11.5-14.5)
[2022-10-18 08:45] LABS: ALANINE AMINOTRANSFERASE 19 U/L (12-78); ALBUMIN 2.6 G/DL (3.4-5.0); ALKALINE PHOSPHATASE 79 IU/L (46-116); ANION GAP 3 (8-16); ASPARTATE AMINO TRANSFERASE 16 U/L (10-37); BILIRUBIN,TOTAL 0.2 MG/DL (0.1-1.0); BLOOD UREA NITROGEN 13 MG/DL (7-18); BUN/CREATININE RATIO 21.3 (10.0-20.0); CHLORIDE 98 MMOL/L (99-107); CREATININE 0.61 MG/DL (0.40-0.90); GLUCOSE 123 MG/DL (70-104); POTASSIUM 4.9 MMOL/L (3.5-5.1); SODIUM 130 MMOL/L (135-145); TOTAL CARBON DIOXIDE 28.7 MMOL/L (24-32); TOTAL PROTEIN 5.2 G/DL (6.4-8.2); eGFR > 90 ML/MIN
[2022-10-18] MEDS: methylPREDNISolone sod succ/PF 40mg inj. IV SCH ×2 (09:22→19:44)
--- NOTE | 2022-10-18 09:59 | NUR ---
postictal, s/p 1mg ativan ~0400. 10/17, heel protectors (mepilex) applied to red, blanchable heels + prophylactic mepilex on sacrum. RR 15, pt not responsive to IV sticks. TeleNeuro ordered Addendum: 10/18/22 at 1107 by Steph Gamez RN karen Mejias: Miguel ZepedaA. NATE: Neuro consult in (unsure how phone consult when pt post-ictal). PHT level 1.2. Steph [id number] Addendum: 10/18/22 at 1119 by Steph Gamez RN Q2 Turns=- pt is dry, no urinary output in diaper. Addendum: 10/18/22 at 1159 by Steph Gamez RN This RN went to ED for [facility] and no response from neurologist with Jeovany at bedside. Pt post-ictal and unable to participate in interview. This RN attempted to call [facility] and the Neuro assessment already submitted by Dr Abel. Dr Mejias notified Addendum: 10/18/22 at 1353 by Steph Gamez RN @ 1300, pt awakened to pain in LUE per infiltrated IV. Willl restart
[2022-10-18 10:02] VITALS: BP 129/59
[2022-10-18 10:28] LABS: PHENYTOIN (DILANTIN) 1.2 UG/ML (10.0-20.0)
[2022-10-18 10:35] VITALS: BP 137/55
[2022-10-18] MEDS: levoFLOXACIN-Levaquin 750MG/D5 150 ML IV SCH ×2 (11:20→12:30)
[2022-10-18] MEDS ORDERED: tuberculin, purif. prot. deriv. 5 units/0.1ml ID ONE (14:00)
[2022-10-18] MEDS ORDERED: ondansetron 4mg rapidly disintigrating tab PO PRN (14:35)
[2022-10-18 15:05] VITALS: BP 138/59
--- NOTE | 2022-10-18 15:48 | NUR ---
Paged Dr Mejias: Miguel 349A, Neuro didn't recommend EEG, just CT head. Just s/w EEG. Do we still want one? The order wasn't placed correctly--> I can fixed. Steph [id number] Addendum: 10/18/22 at 1552 by Steph Gamez RN s/w Dacia in EEG and s/w Dr Mejias, cancel EEG for now per increase in dilantin per neuro recommend Addendum: 10/18/22 at 1708 by Steph Gamez RN TB test administered R FA @ 1700. Pt awakened at 1300, A&O and neuro checks WDL. Pt in good spiritis and A&Ox3
[2022-10-18] MEDS: phenytoin sod 50mg/ml 2ml vial IV SCH (16:55)
[2022-10-18 18:00] VITALS: BP 120/50
--- NOTE | 2022-10-18 18:30 | NUR ---
Patient in room BARRIE 349. I have received report from Steph dumont RN and had the opportunity to ask questions and assume patient care.
[2022-10-18 19:44] VITALS: BP 117/93
[2022-10-18] MEDS: heparin, porcine 5000 units/ml vial SQ SCH (19:45)
[2022-10-18] MEDS: pramipexole 0.25mg tablet PO SCH (19:45)
[2022-10-18] MEDS: tamsulosin 0.4mg capsule PO SCH (19:45)
[2022-10-19] MEDS: phenytoin sod 50mg/ml 2ml vial IV SCH ×4 (00:12→17:48)
[2022-10-19] MEDS: albuterol 2.5 MG/3 ML nebule NEB SCH ×6 (03:11→23:07)
[2022-10-19] MEDS: normal saline 1000ml 1,000 ML IV SCH (04:33)
--- NOTE | 2022-10-19 06:40 | NUR ---
Problems reprioritized. Patient report given, questions answered & plan of care reviewed with Abbie PHILLIPS.
--- NOTE | 2022-10-19 06:47 | NUR ---
Patient in room BARRIE 349. I have received report from Gabriella PHILLIPS and had the opportunity to ask questions and assume patient care.
[2022-10-19] MEDS: LACTOSE-REDUCED FOOD 237ML LIQUID PO SCH ×3 (08:00→18:00)
[2022-10-19] MEDS: losartan 25mg tablet PO SCH (08:00)
[2022-10-19] MEDS: budesonide 0.5mg/2ml UD nebule IH SCH ×2 (08:08→19:33)
[2022-10-19] MEDS: methylPREDNISolone sod succ/PF 40mg inj. IV SCH ×2 (08:19→21:25)
[2022-10-19] MEDS: carVEDilol 3.125mg tablet PO SCH ×2 (08:32→21:21)
[2022-10-19] MEDS: sodium chloride 1gm tablet PO SCH ×3 (08:32→21:20)
[2022-10-19] MEDS: magnesium oxide 400mg tablet PO SCH (08:32)
[2022-10-19] MEDS: heparin, porcine 5000 units/ml vial SQ SCH ×2 (08:34→21:22)
[2022-10-19] MEDS: famotidine 20mg tablet PO SCH (08:34)
[2022-10-19] MEDS: levoFLOXACIN-Levaquin 750MG/D5 150 ML IV SCH (08:42)
--- NOTE | 2022-10-19 11:14 | NUR ---
Student documentation: I have reviewed and agree with all interventions, assessments performed and documented by Tiana student nurse.
--- NOTE | 2022-10-19 11:43 | NUR ---
Applied optifoam dressings to L elbow, bilateral heels and coccyx area. Primary RN aware. Patient resting comfortably.
[2022-10-19 11:52] VITALS: BP 132/57
[2022-10-19 18:00] VITALS: BP 155/74
--- NOTE | 2022-10-19 18:44 | NUR ---
Problems reprioritized. Patient report given, questions answered & plan of care reviewed with Kelsy PHILLIPSfire extinguisher charger.
[2022-10-19] MEDS: tamsulosin 0.4mg capsule PO SCH (21:19)
[2022-10-19] MEDS: pramipexole 0.25mg tablet PO SCH (21:20)
--- NOTE | 2022-10-19 21:39 | NUR ---
Student documentation: I have reviewed interventions, assessments performed and documented by Eloisa DALAL [facility].
--- NOTE | 2022-10-19 21:39 | NUR ---
Student Medication Administration: For this medication-pass time frame, all medication were reviewed, dispensed, administered and documented per hospital policy by Eloisa DALAL [facility].
[2022-10-19 22:00] VITALS: BP 143/81
[2022-10-20] MEDS: phenytoin sod 50mg/ml 2ml vial IV SCH (00:12)
--- NOTE | 2022-10-20 02:53 | NUR ---
reviewed student charting and in agreement.
[2022-10-20] MEDS: albuterol 2.5 MG/3 ML nebule NEB SCH ×6 (03:29→23:42)
[2022-10-20 06:00] VITALS: BP 141/85
[2022-10-20 06:27] LABS: BASOPHILS # (AUTO) 0.1 X10'3 (0-0.2); BASOPHILS % (AUTO) 0.6 % (0-1); EOSINOPHILS % (AUTO) 0.4 % (0-6); HEMATOCRIT 35.4 % (35.0-45.0); HEMOGLOBIN 11.8 g/dl (12.0-16.0); LYMPHOCYTES # (AUTO) 1.1 X10'3 (1.1-4.8); LYMPHOCYTES % (AUTO) 10.1 % (21-51); MEAN CORPUSCULAR HEMOGLOBIN 31.4 PG (27.0-31.0); MEAN CORPUSCULAR HGB CONC 33.5 g/dL (33.0-36.5); MEAN PLATELET VOLUME 8.6 FL (7.4-10.4); MONOCYTES # (AUTO) 0.5 X10'3 (0-0.9); MONOCYTES % (AUTO) 4.7 % (2-12); NEUTROPHILS # (AUTO) 9.5 X10'3 (1.8-7.7); NEUTROPHILS % (AUTO) 84.2 % (42-75); PLATELET COUNT 404 X10'3 (140-440); RED BLOOD COUNT 3.76 X10'6 (4.20-5.60); RED CELL DISTRIBUTION WIDTH 14.5 % (11.5-14.5); WHITE BLOOD COUNT 11.3 X10'3 (4.5-11.0)
[2022-10-20 06:34] LABS: ALANINE AMINOTRANSFERASE 15 U/L (12-78); ALBUMIN 3.2 G/DL (3.4-5.0); ALBUMIN/GLOBULIN RATIO 1.1 (1.1-1.5); ALKALINE PHOSPHATASE 88 IU/L (46-116); ANION GAP 1 (8-16); ASPARTATE AMINO TRANSFERASE 12 U/L (10-37); BILIRUBIN,TOTAL 0.3 MG/DL (0.1-1.0); BLOOD UREA NITROGEN 19 MG/DL (7-18); BUN/CREATININE RATIO 35.2 (10.0-20.0); CALCIUM 9.5 MG/DL (8.5-10.1); CHLORIDE 92 MMOL/L (99-107); CREATININE 0.54 MG/DL (0.40-0.90); GLUCOSE 130 MG/DL (70-104); POTASSIUM 4.5 MMOL/L (3.5-5.1); SODIUM 128 MMOL/L (135-145); eGFR > 90 ML/MIN
--- NOTE | 2022-10-20 07:02 | NUR ---
Problems reprioritized. Patient report given, questions answered & plan of care reviewed with Abbie PHILLIPS.
[2022-10-20] MEDS: budesonide 0.5mg/2ml UD nebule IH SCH ×2 (07:36→19:37)
[2022-10-20] MEDS ORDERED: normal saline 1000ml 1,000 ML IV SCH (07:55)
[2022-10-20] MEDS: losartan 25mg tablet PO SCH (08:37)
[2022-10-20] MEDS: methylPREDNISolone sod succ/PF 40mg inj. IV SCH ×2 (08:38→20:00)
[2022-10-20] MEDS: phenytoin sod ER 100mg capsule PO SCH (08:38)
[2022-10-20] MEDS: sodium chloride 1gm tablet PO SCH ×3 (08:38→20:23)
[2022-10-20] MEDS: famotidine 20mg tablet PO SCH (08:38)
[2022-10-20] MEDS: carVEDilol 3.125mg tablet PO SCH ×2 (08:38→20:23)
[2022-10-20] MEDS: heparin, porcine 5000 units/ml vial SQ SCH ×2 (08:39→20:23)
[2022-10-20] MEDS: magnesium oxide 400mg tablet PO SCH (08:40)
[2022-10-20] MEDS: LACTOSE-REDUCED FOOD 237ML LIQUID PO SCH ×3 (08:40→18:43)
[2022-10-20 10:00] VITALS: BP 131/59
[2022-10-20 12:41] VITALS: BP 140/82
[2022-10-20] MEDS: levoFLOXACIN 750MG TABLET PO SCH (13:31)
[2022-10-20] MEDS ORDERED: cetirizine 10mg tablet PO ONE (14:35)
[2022-10-20 15:02] LABS: ALBUMIN 3.1 G/DL (3.4-5.0); ANION GAP 4 (8-16); BLOOD UREA NITROGEN 24 MG/DL (7-18); BUN/CREATININE RATIO 35.8 (10.0-20.0); CALCIUM 9.5 MG/DL (8.5-10.1); CHLORIDE 91 MMOL/L (99-107); CREATININE 0.67 MG/DL (0.40-0.90); GLUCOSE 184 MG/DL (70-104); POTASSIUM 4.5 MMOL/L (3.5-5.1); SODIUM 129 MMOL/L (135-145); TOTAL CARBON DIOXIDE 34.4 MMOL/L (24-32); eGFR 84 ML/MIN
[2022-10-20 16:23] VITALS: BP 146/80
--- NOTE | 2022-10-20 18:27 | NUR ---
Problems reprioritized. Patient report given, questions answered & plan of care reviewed with Christy DENIS.
[2022-10-20] MEDS: normal saline 1000ml 1,000 ML IV SCH (18:55)
[2022-10-20] MEDS: tamsulosin 0.4mg capsule PO SCH (20:23)
[2022-10-20] MEDS: pramipexole 0.25mg tablet PO SCH (20:23)
[2022-10-20 22:00] VITALS: BP 166/76
[2022-10-21] MEDS: normal saline 1000ml 1,000 ML IV SCH (01:23)
[2022-10-21] MEDS: albuterol 2.5 MG/3 ML nebule NEB SCH ×2 (03:27→08:29)
--- NOTE | 2022-10-21 05:50 | NUR ---
reviewed STEEL LAYOUT WORKER assessment and in agreement.
--- NOTE | 2022-10-21 05:59 | NUR ---
Problems reprioritized. Patient report given, questions answered & plan of care reviewed with JACQUELINE Morel.
[2022-10-21 07:20] LABS: ALANINE AMINOTRANSFERASE 13 U/L (12-78); ALBUMIN 2.7 G/DL (3.4-5.0); ALKALINE PHOSPHATASE 80 IU/L (46-116); ANION GAP 2 (8-16); ASPARTATE AMINO TRANSFERASE 12 U/L (10-37); BILIRUBIN,TOTAL 0.3 MG/DL (0.1-1.0); BLOOD UREA NITROGEN 18 MG/DL (7-18); CHLORIDE 94 MMOL/L (99-107); GLUCOSE 97 MG/DL (70-104); POTASSIUM 4.4 MMOL/L (3.5-5.1); SODIUM 130 MMOL/L (135-145); TOTAL CARBON DIOXIDE 34.2 MMOL/L (24-32); TOTAL PROTEIN 5.4 G/DL (6.4-8.2); eGFR > 90 ML/MIN
[2022-10-21 07:30] LABS: BASOPHILS % (AUTO) 0.5 % (0-1); EOSINOPHILS # (AUTO) 0.1 X10'3 (0-0.9); EOSINOPHILS % (AUTO) 0.7 % (0-6); LYMPHOCYTES # (AUTO) 1.5 X10'3 (1.1-4.8); LYMPHOCYTES % (AUTO) 15.9 % (21-51); MEAN CORPUSCULAR HEMOGLOBIN 31.3 PG (27.0-31.0); MEAN CORPUSCULAR HGB CONC 33.4 g/dL (33.0-36.5); MEAN CORPUSCULAR VOLUME 93.8 FL (78-98); MEAN PLATELET VOLUME 8.8 FL (7.4-10.4); MONOCYTES % (AUTO) 10.3 % (2-12); NEUTROPHILS # (AUTO) 6.8 X10'3 (1.8-7.7); NEUTROPHILS % (AUTO) 72.6 % (42-75); PLATELET COUNT 408 X10'3 (140-440); RED BLOOD COUNT 3.84 X10'6 (4.20-5.60); RED CELL DISTRIBUTION WIDTH 14.7 % (11.5-14.5); WHITE BLOOD COUNT 9.4 X10'3 (4.5-11.0)
[2022-10-21 07:36] VITALS: BP 110/71
[2022-10-21] MEDS: LACTOSE-REDUCED FOOD 237ML LIQUID PO SCH (08:00)
[2022-10-21] MEDS ORDERED: cetirizine 10mg tablet PO SCH (08:00)
[2022-10-21] MEDS: magnesium oxide 400mg tablet PO SCH (08:00)
[2022-10-21] MEDS: budesonide 0.5mg/2ml UD nebule IH SCH (08:29)
[2022-10-21] MEDS ORDERED: PHEN200C4 PO (09:54)
[2022-10-21] MEDS: phenytoin sod ER 100mg capsule PO SCH (10:15)
[2022-10-21] MEDS: sodium chloride 1gm tablet PO SCH (10:17)
[2022-10-21] MEDS: methylPREDNISolone sod succ/PF 40mg inj. IV SCH (10:18)
[2022-10-21] MEDS: famotidine 20mg tablet PO SCH (10:18)
[2022-10-21] MEDS: heparin, porcine 5000 units/ml vial SQ SCH (10:20)
[2022-10-21] MEDS: acetaminophen 325mg tablet PO PRN (10:21)
[2022-10-21] MEDS: losartan 25mg tablet PO SCH (10:26)
[2022-10-21] MEDS: carVEDilol 3.125mg tablet PO SCH (10:26)
--- NOTE | 2022-10-21 10:33 | NUR ---
Called son OTTONIEL BLANK. He states pt. is fixated and making up allergies. States he has seen her eat shell fish and crab before. He does not think that his mother has any actual allergies. Hospitalist aware that pt.'s Levaquin is listed as an allergy but pt has recieved a dose of PO Levaquin and several dose of IV Levaquin before.
[2022-10-21] MEDS: levoFLOXACIN 750MG TABLET PO SCH (10:38)
[2022-10-21 11:03] VITALS: BP 150/64
--- NOTE | 2022-10-21 11:07 | NUR ---
Unaware if pt. is a "transfer" to [facility] or discharge home. unaware who is transporting pt. Paged CM for details and called [email or web address] phone. Left ISIDRO. Was notified that p/u time [id number]
--- NOTE | 2022-10-21 12:00 | NUR ---
Pt. transferred to [facility]. Primary RN on break.
== END 2022-10-21 11:56 | disposition home or self-care (01) | DRG 190 ==
LOC: ER 01:12 → ED HOLD 12:40 → SUR 3N 19:40
PROVIDERS: ADMIT Internal Medicine; ATTEND Internal Medicine
DX: J44.1 Chronic obstructive pulmonary disease with (acute) exacerbation (principal); J96.20 Acute and chronic respiratory failure, unspecified whether with hypoxia or hypercapnia; E87.1 Hypo-osmolality and hyponatremia; N30.00 Acute cystitis without hematuria; G89.29 Other chronic pain; K21.9 Gastro-esophageal reflux disease without esophagitis; B95.2 Enterococcus as the cause of diseases classified elsewhere; Z66 Do not resuscitate; E87.5 Hyperkalemia; B96.20 Unspecified Escherichia coli [E. coli] as the cause of diseases classified elsewhere; F03.90 Unspecified dementia, unspecified severity, without behavioral disturbance, psychotic disturbance, mood disturbance, and anxiety; I10 Essential (primary) hypertension; R56.9 Unspecified convulsions; Z79.51 Long term (current) use of inhaled steroids; Z87.11 Personal history of peptic ulcer disease; Z87.442 Personal history of urinary calculi; Z88.0 Allergy status to penicillin; Z88.1 Allergy status to other antibiotic agents; Z88.2 Allergy status to sulfonamides; Z91.013 Allergy to seafood; Z88.8 Allergy status to other drugs, medicaments and biological substances; Z90.710 Acquired absence of both cervix and uterus; Z79.899 Other long term (current) drug therapy; E86.0 Dehydration
CPT/HCPCS: 36415; 71045; 80048; 80053; 80185; 81001; 82948; 83605; 85008; 85025; 87040; 87077; 87081; 87088; 87186; 93005; 94640; 94760; 96374; 97110; 97116; 97161; 97530; 99285; A4620; A6212; A6213; A6250; A6258; A7015; G0378; J0696; J1165; J1200; J1644; J1956; J2060; J2405; J2920; J2930; J3490; J7030